=== PATIENT | female | born 1995 | race Caucasian/White ===

== ENCOUNTER 2023-03-11 20:53 | Outpatient (REF) | payer MEDICAID, SELFPAY ==
[2023-03-17 14:09] LABS: Age Gdln ACOG Testing Note (.); IGP, rfx Aptima HPV ASCU Note (.)
== END 2023-03-11 20:54 | disposition home or self-care (01) ==
LOC: LAB 20:53
PROVIDERS: Visit Provider Obstetrics & Gynecology
DX: Z01.419 Encounter for gynecological examination (general) (routine) without abnormal findings (principal)
CPT/HCPCS: G0145

== ENCOUNTER 2023-03-23 12:55 | Outpatient (OUT) | payer MEDICAID, SELFPAY ==
--- NOTE | 2023-03-23 13:00 | US_ITS ---
The [address] [address] Patient Name: JENNIE ARGUELLO MRN: [id number] date: 1995 Sex: F Assigned Patient Location: Current Patient Location: Accession/Order Number: [id number] Exam Date: 03/23/2023 14:00 Report Date: 03/23/2023 16:42 At the request of: HAYDEE BAZAN Procedure: US pelvis transvaginal EXAM: Pelvic ultrasound HISTORY: . Hormone Imbalance E34.9 . COMPARISON: None. TECHNIQUE: Transvaginal scanning was performed FINDINGS: Scanning of the pelvis demonstrates an anteverted uterus measuring 8.4 x 4.7 x 4.9 cm. Endometrial complex measures 14 mm. Right ovary measures 4.5 x 2.7 x 3.4 cm. Color-flow is noted. Resistive index is 0.32. There is a 2.6 x 2.5 cm smoothly marginated avascular complicated cyst in the right ovary. Left ovary measures 4 x 2.2 x 2.4 cm. Color-flow is noted. Resistive indexes 0.4. There is a 1.7 x 1.6 cm simple cyst in the left ovary. No fluid is noted in the cul-de-sac. US/US pelvis transvaginal IMPRESSION: 1. Uterus and endometrial complex. 2. 1.7 cm simple cyst in the left ovary. 3. 2.6 x 2.5 cm avascular complex cyst in the right ovary. Findings most likely represent hemorrhagic cyst. Less likely would be an inflammatory mass or neoplasm. Clinical correlation is suggested. Electronically authenticated by: MARKIE BARTON Date: 03/23/2023 16:42
[2023-03-23 14:38] LABS: Basophils Percent Auto 0.4 % (0.2-2.0); Eosinophils Absolute Auto 0.2 10^3/uL (0.0-0.7); Eosinophils Percent Auto 2.9 % (0.9-7.0); Hematocrit 38.8 % (36.0-48.0); Immature Granulocytes Abs Auto 0.01 10^3/uL (0.00-0.03); Immature Granulocytes Pct Auto 0.1 % (0.0-0.5); Lymphocytes Absolute Auto 2.1 10^3/uL (1.2-3.8); Lymphocytes Percent Auto 27.8 % (20.5-60.0); Mean Corpuscular HGB Conc 33.5 g/dL (29.9-35.2); Mean Corpuscular Hemoglobin 29.1 pg (26.7-34.0); Mean Corpuscular Volume 86.8 fL (81.0-99.0); Mean Platelet Volume 10.1 fL (9.5-13.5); Monocytes Absolute Auto 0.4 10^3/uL (0.3-0.8); Monocytes Percent Auto 5.5 % (1.7-12.0); Neutrophils Absolute Auto 4.8 10^3/uL (1.4-6.5); Neutrophils Percent Auto 63.3 % (43.0-75.0); Platelet Count 289 10^3/uL (150-450); Red Blood Count 4.47 10^6/uL (4.20-5.40); Red Cell Distribution Width 12.6 % (11.0-15.0); White Blood Count 7.6 10^3/uL (4.0-11.0)
[2023-03-23 14:53] LABS: Estimated Average Glucose 88 mg/dL; Glycohemoglobin A1C 4.7 % (4.5-6.2)
[2023-03-23 15:57] LABS: Free T4 0.78 ng/dL (0.76-1.46)
[2023-03-23 16:36] LABS: HCG Quantitative <1 mIU/mL
[2023-03-24 04:12] LABS: FSH 3.1 mIU/mL (.); Luteinizing Hormone(LH) 13.1 mIU/mL (.)
[2023-03-27 13:09] LABS: DHEA, Serum 207 ng/dL (31-701)
== END 2023-03-23 12:56 | disposition home or self-care (01) ==
LOC: US 12:55
PROVIDERS: Visit Provider Obstetrics & Gynecology
DX: E34.9 Endocrine disorder, unspecified (principal); N83.291 Other ovarian cyst, right side; N83.292 Other ovarian cyst, left side
CPT/HCPCS: 36415; 76830; 82626; 82627; 83001; 83002; 83036; 84439; 84443; 84702; 85025

== ENCOUNTER 2023-06-26 14:51 | Outpatient (OUT) | payer OTHER, SELFPAY ==
--- NOTE | 2023-06-26 14:55 | US_ITS ---
[address] [address] Patient Name: JENNIE ARGUELLO MRN: [id number] date: 1995 Sex: F Assigned Patient Location: US Current Patient Location: Accession/Order Number: [id number] Exam Date: 06/26/2023 14:56 Report Date: 06/29/2023 04:18 At the request of: HAYDEE BAZAN Procedure: US pelvis transvaginal EXAMINATION: US pelvis transvaginal HISTORY: PELVIC PAIN IN FEMALE R10.2 ; follow-up right ovarian complex cyst COMPARISON: Ultrasound pelvis transvaginal 03/23/2023 TECHNIQUE: Transabdominal and/or transvaginal sonographic examination was performed as indicated by examination type. FINDINGS: UTERUS: Normal size and appearance. Uterus size: 7.8 x 4.6 x 5.4 cm ENDOMETRIUM: Normal homogeneous appearance. Endometrial thickness: 9 mm RIGHT OVARY: Contains a 2.0 x 1.7 x 1.3 cm simple appearing cyst. Duplex Doppler demonstrates normal waveform and flow; resistive index 0.5. Ovary size: 4.5 x 2.1 x 2.5 cm LEFT OVARY: Normal size and appearance. Duplex Doppler demonstrates normal waveform and flow; resistive index 0.4. Ovary size: 3.2 x 1.8 x 1.4 cm CUL-DE-SAC: Unremarkable. No significant free fluid. BLADDER: Unremarkable. OTHER: None. US/US pelvis transvaginal IMPRESSION: 1. No acute or suspicious findings. 2. Resolution of previously seen complex right ovarian cyst. Electronically authenticated by: NAHOMY CABRERA Date: 06/29/2023 04:18
[2023-06-26 16:43] LABS: Thyroid Stimulating Hormone 1.948 uIU/mL (0.358-3.740)
== END 2023-06-26 14:52 | disposition home or self-care (01) ==
LOC: US 14:51
PROVIDERS: Visit Provider Obstetrics & Gynecology
DX: R10.2 Pelvic and perineal pain (principal); R79.89 Other specified abnormal findings of blood chemistry
CPT/HCPCS: 36415; 76830; 84443

== ENCOUNTER 2024-06-05 11:56 | Emergency (ER) | payer BC, SELFPAY ==
[2024-06-05 12:10] VITALS: BP 109/74; PULSE 111; TEMP 36.8; O2SAT 98; BMI 24.3
--- OUTSIDE RECORDS SUMMARY | 2024-06-05 12:14 | XMS_ITS | CCD ---
Author Organization 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 Name Role Phone Unavailable Primary Care Provider UnavailMANUEL Ruvalcaba Attending Unavailable EBOSELEMANUEL Primary Care Unavailable EBOSELMANUEL Mojica Attending Unavailable EBOSELMANUEL Mojica Primary Care Unavailable KARASIK ., DR BETANCUR Admitting Unavailabl e KARASIK ., DR BETANCUR Attending Unavailabl e KARASIK ., DR BETANCUR Consulting Unavailabl e REQUEST, DR NONE LISTED Primary Care Unavaila ble REQUEST, DR NONE LISTED Primary Care Unavaila ble HORTENSIA ., DR HUBBARD Attending Unavailable HORTENSIA ., DR HUBBARD Consulting Unavailable HORTENSIA ., DR HUBBARD Admitting Unavailable SONG II, MAGO Consulting Unavailable KOMA, UMESH Consulting Unavailable REQUEST, NONE LISTED Primary Care Unavaila ble HORTENSIA ., DR HUBBARD Attending Unavailable HORTENSIA ., DR HUBBARD Consulting Unavailable HORTENSIA ., DR HUBBARD Admitting Unavailable REQUEST, DR NONE LISTED Primary Care Unavaila ble HORTENSIA ., DR HUBBARD Attending Unavailable HORTENSIA ., DR HUBBARD Consulting Unavailable HORTENSIA ., DR HUBBARD Admitting Unavailable KARASIK ., DR BETANCUR Admitting Unavailabl e KARASIK ., DR BETANCUR Attending Unavailabl e KARASIK ., DR BETANCUR Consulting Unavailabl e REQUEST, DR NONE LISTED Primary Care Unavaila ble ZiebNiko lackey Consulting Unavailable REQUEST, NONE LISTED Primary Care Unavaila ble HORTENSIA ., DR HUBBARD Admitting Unavailable HORTENSIA ., DR HUBBARD Attending Unavailable REQUEST, NONE LISTED Primary Care Unavaila ble HORTENSIA ., DR HUBBARD Attending Unavailable HORTENSIA ., DR HUBBARD Admitting Unavailable HORTENSIA ., DR HUBBARD Admitting Unavailable REQUEST, DR NONE LISTED Primary Care Unavaila ble HORTENSIA ., DR HUBBARD Attending Unavailable REQUEST, DR NONE LISTED Primary Care Unavaila ble HORTENSIA ., DR HUBBARD Attending Unavailable HORTENSIA ., DR HUBBARD Consulting Unavailable HORTENSIA ., DR HUBBARD Admitting Unavailable REQUEST, DR NONE LISTED Primary Care Unavaila ble HORTENSIA ., DR HUBBARD Attending Unavailable HORTENSIA ., DR HUBBARD Consulting Unavailable HORTENSIA ., DR HUBBARD Admitting Unavailable HORTENSIA ., DR HUBBARD Consulting Unavailable REQUEST, DR NONE LISTED Primary Care Unavaila ble HORTENSIA ., DR HUBBARD Attending Unavailable HORTENSIA ., DR HUBBARD Admitting Unavailable MISC, DR HANNON Primary Care Unavailable HORTENSIA ., DR HUBBARD Consulting Unavailable HORTENSIA ., DR HUBBARD Admitting Unavailable HORTENSIA ., DR HUBBARD Attending Unavailable Zieber, Niko Consulting Unavailable HORTENSIA ., DR HUBBARD Attending Unavailable HORTENSIA ., DR HUBBARD Consulting Unavailable HORTENSIA ., DR HUBBARD Admitting Unavailable REQUEST, DR NONE LISTED Primary Care Unavaila ble KONSTMANUELA HAGEN Consulting Unavailable KARASIK ., DR BETANCUR Consulting Unavailabl e HORTENSIA ., DR HUBBARD Admitting Unavailable REQUEST, DR NONE LISTED Primary Care Unavaila ble HORTENSIA ., DR HUBBARD Attending Unavailable WEST, DR MARKIE Valle Consulting Unavailable HORTENSIA ., DR HUBBARD Consulting Unavailable HORTENSIA ., DR HUBBARD Consulting Unavailable HORTENSIA ., DR HUBBARD Admitting Unavailable HORTENSIA ., DR HUBBARD Attending Unavailable REQUEST, DR NONE LISTED Primary Care Unavaila ble Zieber, Niko Consulting Unavailable HORTENSIA ., DR HUBBARD Attending Unavailable HORTENSIA ., DR HUBBARD Consulting Unavailable HORTENSIA ., DR HUBBARD Admitting Unavailable REQUEST, DR NONE LISTED Primary Care Unavaila ble KARASIK ., DR BETANCUR Admitting Unavailabl e KARASIK ., DR BETANCUR Attending Unavailabl e KARASIK ., DR BETANCRU Consulting Unavailabl e MISC, DR HANNON Primary Care Unavailable HORTENSIA ., DR HUBBARD Consulting Unavailable ZiebNiko lackey Consulting Unavailable WEST, DR MARKIE Valle Consulting Unavailable REQUEST, DR NONE LISTED Primary Care Unavaila ble HORTENSIA ., DR HUBBARD Attending Unavailable HORTENSIA ., DR HUBBARD Admitting Unavailable HORTENSIA ., DR HUBBARD Procedure Practitioner Unavail able HORTENSIA ., DR HUBBARD Consulting Unavailable LORRAINE HAMMER Consulting Unavailable KARASIK ., DR BETANCUR Consulting Unavailabl e MISC, DR HANNON Primary Care Unavailable HORTENSIA ., DR HUBBARD Admitting Unavailable HORTENSIA ., DR HUBBARD Attending Unavailable HORTENSIA ., DR HUBBARD Consulting Unavailable Niko Burdick Consulting Unavailable REQUEST, DR NONE LISTED Primary Care Unavaila ble HORTENSIA ., DR HUBBARD Attending Unavailable HORTENSIA ., DR HUBBARD Consulting Unavailable HORTENSIA ., DR HUBBARD Admitting Unavailable REQUEST, DR NONE LISTED Primary Care Unavaila ble HORTENSIA ., DR HUBBARD Attending Unavailable HORTENSIA ., DR HUBBARD Admitting Unavailable WEST, DR MARKIE Valle Consulting Unavailable HORTENSIA ., DR HUBBARD Consulting Unavailable KARASIK ., DR BETANCUR Consulting Unavailabl e REQUEST, DR NONE LISTED Primary Care Unavaila ble HORTENSIA ., DR HUBBARD Attending Unavailable HORTENSIA ., DR HUBBARD Admitting Unavailable HORTENSIA ., DR HUBBARD Attending Unavailable HORTENSIA ., DR HUBBARD Consulting Unavailable HORTENSIA ., DR HUBBARD Admitting Unavailable REQUEST, DR NONE LISTED Primary Care Unavaila ble REQUEST, NONE LISTED Primary Care Unavaila ble HORTENSIA ., DR HUBBARD Attending Unavailable HORTENSIA ., DR HUBBARD Admitting Unavailable WEST, DR MARKIE Valle Consulting Unavailable HORTENSIA ., DR HUBBARD Consulting Unavailable Harris Ronald SOTO Primary Care Provider RONALD HARRIS Attending Unavailable HARRIS, RONALD Ghotra Referring Unavailable HARRIS, RONALD N Primary Care Unavailable DENNIS VÁZQUEZ Attending Unavailable HARRIS, RONALD Ghotra Referring Unavailable HARRIS, RONALD N Primary Care Unavailable HARRIS, RONALD Ghotra Attending Unavailable HARRIS, RONALD N Referring Unavailable HARRIS, RONALD N Primary Care Unavailable HARRIS, RONALD N Attending Unavailable HARRIS, RONALD N Referring Unavailable HARRIS, RONALD N Primary Care Unavailable HARRIS, RONALD N Attending Unavailable HARRIS, RONALD N Primary Care Unavailable Allergies Allergy Classification Reported Allergen(s) Allergy Type Date of Onset Reaction(s) Facility Unclassified (1 source) No Known Medication Allergies; Translations: [No Known Medication Allergies] Propensity to adverse reactions to drug (disorder) [facility] Repository (2 sources) Amoxicillin; Translations: [AMOXICILLIN] Drug Allergy 4 [facility] Repository (1 source) NIFEdipine Drug Allergy 2 [facility] Repository (3 sources) Amoxicillin Drug Allergy 4 Hives, hypertension, Dizziness [facility] (1 source) Wheat gluten extract [facility] Medications Current Medications Medication Drug Class(es) Dates Sig (Normalized) Sig (Original) cholecalciferol 0.125 mg oral capsule (2 sources) Vitamin D Start: 12-30-2023 End: 09-28-2024 take 1 capsule by mouth in the morning cholecalciferol, vitamin D3, (D3-5000) 5,000 units capsule Take 1 capsule (5,000 Units total) by mouth in the morning for 180 days. 90 capsule 1 04/01/2024 09/28/2024 Active ergocalciferol 1.25 mg oral capsule (1 source) Provitamin D2 Compound Start: 07-27-2023 End: 10-13-2023 take 1 capsule by mouth every week ergocalciferol (VITAMIN D2) 1,250 mcg (50,000 unit) capsule Indications: Vitamin D deficiency disease Take 1 capsule (50,000 Units total) by mouth once a week for 12 doses. 12 capsule 0 07/27/2023 10/13/2023 Active FLUoxetine 10 mg oral capsule (3 sources) Serotonin Reuptake Inhibitor Start: 12-30-2023 End: 09-28-2024 take 1 capsule by mouth in the morning FLUoxetine (PROzac) 10 mg capsule Take 1 capsule (10 mg total) by mouth in the morning for 180 days. Take in morning. 90 capsule 1 04/01/2024 09/28/2024 Active Start: 07-27-2023 End: 08-26-2023 take 1 capsule by mouth in the morning FLUoxetine (PROzac) 10 mg capsule Take 1 capsule (10 mg total) by mouth in the morning for 30 days. 30 capsule 0 07/27/2023 08/26/2023 Active hydrocortisone acetate 10 mg/ml / pramoxine hydrochloride 10 mg/ml rectal foam (1 source) Corticosteroid Start: 07-05-2019 take 1 dose rectal route four times daily as needed hydrocortisone-pramoxine (PROCTOFOAM HC) 1-1 % rectal foam Place rectally 4 times daily. As needed 10 g 0 07/05/2019 Active levothyroxine sodium 0.05 mg oral tablet (4 sources) l-Thyroxine Start: 12-30-2023 End: 09-28-2024 take 1 tablet by mouth in the morning levothyroxine (SYNTHROID, LEVOTHROID) 50 MCG tablet Take 1 tablet (50 mcg total) by mouth in the morning for 180 days. 90 tablet 1 04/01/2024 09/28/2024 Active take 1 tablet by mouth in the mo rning levothyroxine (SYNTHROID, LEVOTHROID) 50 MCG tablet Take 1 tablet (50 mcg total) by mouth in the morning. 0 Active naproxen 500 mg oral tablet (1 source) Nonsteroidal Anti-inflammatory Drug Start: 07-05-2019 take 1 tablet by mouth twice daily naproxen (NAPROSYN) 500 MG tablet Take 1 tablet by mouth 2 times daily 14 tablet 0 07/05/2019 Active Completed/Discontinued Medications Medication Drug Class(es) Dates Sig (Normalized) Sig (Original) iopamidol (ISOVUE-370) 76 % injection 75 mL (1 source) Start: 07-05-2019 End: 07-05-2019 iopamidol (ISOVUE-370) 76 % injection 75 mL ondansetron 4 mg disintegrating oral tablet (1 source) Serotonin-3 Receptor Antagonist Start: 07-08-2019 End: 07-06-2023 take 1 tablet by mouth every eight hours as needed for nausea ondansetron ODT (ZOFRAN-ODT) 4 mg disintegrating tablet Dissolve 1 tablet (4 mg total) on tongue every 8 (eight) hours as needed for nausea for up to 10 doses. 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] Onset: 07-27-2023 07-06-2023 Chronic Nutritional deficiencies (2 sources) Vitamin D deficiency; Translations: [Vitamin D deficiency, unspecified] Onset: 07-27-2023 07-27-2023 Chronic Ovarian cyst (1 source) Ruptured cyst of ovary Episodic Thyroid disorders (4 sources) Hypothyroidism; Translations: [Hypothyroidism, unspecified] Onset: 07-06-2023 07-06-2023 Chronic Unclassified (1 source) CONTACT W/AND (SUSP) EXPOS COVID-19; Translations: [CONTACT W/AND (SUSP) EXPOS COVID-19] Onset: 06-02-2022 Unclassified (3 sources) OTH SPCF DIS/COND COMPL ; Translations: [OTH SPCF DIS/COND COMPL ] Onset: 05-22-2022 Unclassified (1 source) Positive thyroid antibody Onset: 09-01-2023 Unclassified (1 source) Thyroid Problem Onset: 09-01-2023 Unclassified (1 source) New Patient Onset: 07-06-2023 Past or Other Problems Problem Classification Problem Date Documented Date Episodic/Chronic Abdominal pain (2 sources) Pelvic and perineal pain; Translations: [Lower abdominal pain, unspecified] Onset: 03-21-2022 Episodic Bacterial infection; unspecified site (1 source) Unspecified Escherichia coli [E. coli] as the cause of diseases classified elsewhere; Translations: [UNS E COLI CAUSE DX CLASS ELSEWHERE] Onset: 05-08-2022 Episodic Biliary tract disease (4 sources) Disease of gallbladder, unspecified; Translations: [DISEASE OF GALLBLADDER UNSPECIFIED] Onset: 10-25-2021 Episodic Early or threatened labor (12 sources) False labor before 37 completed weeks of gestation, third trimester; Translations: [ labor without delivery, unspecified trimester] Onset: 04-23-2022 Episodic Genitourinary symptoms and ill-defined conditions (2 sources) Personal history of urinary (tract) infections; Translations: [Unspecified symptoms and signs involving the genitourinary system] Onset: 02-28-2022 Episodic Immunizations and screening for infectious disease (5 sources) Encounter for screening for human papillomavirus (HPV); Translations: [Encounter for screening for infections with a predominantly sexual mode of transmission] Onset: 12-10-2021 07-27-2023 Episodic Malaise and fatigue (4 sources) Tired; Translations: [Other fatigue] Onset: 07-27-2023 07-06-2023 Episodic Other complications of (4 sources) Maternal care for excessive growth, third trimester, not applicable or unspecified; Translations: [MAT CARE EXCSS FTL GRTH 3RD TRI UNS] Onset: 05-14-2022 Episodic Other complications of (4 sources) Other specified related conditions, third trimester; Translations: [OTH SPEC PREG RELATED COND 3RD TRI] Onset: 05-07-2022 Episodic Other complications of (1 source) Unspecified infection of urinary tract in , third trimester; Translations: [UNS INF URINARY TRACT PREG 3RD TRI] Onset: 05-08-2022 Episodic Other complications of (4 sources) Other specified related conditions, second trimester; Translations: [OTH SPEC PREG RELATED COND 2ND TRI] Onset: 03-09-2022 Episodic Other complications of (4 sources) Unspecified infection of urinary tract in , unspecified trimester; Translations: [UNS INF URINARY TRACT PREG UNS TRI] Onset: 01-29-2022 Episodic Other complications of (1 source) Unspecified infection of urinary tract in , second trimester; Translations: [UNS INF URINARY TRACT PREG 2ND TRI] Onset: 01-30-2022 Episodic Other female genital disorders (1 source) Other specified noninflammatory disorders of vagina; Translations: [OTH SPEC NONINFLAMMATORY D/O VAGINA] Onset: 02-28-2022 Episodic Other and delivery including normal (16 sources) Encounter for routine follow-up; Translations: [Encounter for full-term uncomplicated delivery] Onset: 01-29-2022 Episodic Other screening for suspected conditions (not mental disorders or infectious disease) (11 sources) Encounter for screening for diabetes mellitus; Translations: [Encounter for screening for malignant neoplasm of cervix] Onset: 12-10-2021 Episodic Residual codes; unclassified (1 source) 37 weeks gestation of ; Translations: [37 WEEKS GESTATION OF ] Onset: 06-02-2022 Episodic Residual codes; unclassified (1 source) 36 weeks gestation of ; Translations: [36 WEEKS GESTATION OF ] Onset: 05-22-2022 Episodic Residual codes; unclassified (1 source) 35 weeks gestation of ; Translations: [35 WEEKS GESTATION OF ] Onset: 05-11-2022 Episodic Residual codes; unclassified (1 source) 33 weeks gestation of ; Translations: [33 WEEKS GESTATION OF ] Onset: 05-08-2022 Episodic Residual codes; unclassified (1 source) 32 weeks gestation of ; Translations: [32 WEEKS GESTATION OF ] Onset: 04-21-2022 Episodic Residual codes; unclassified (1 source) 26 weeks gestation of ; Translations: [26 WEEKS GESTATION OF ] Onset: 03-21-2022 Episodic Unclassified (1 source) OT SPCF DIS/COND COMPL ; Translations: [OT SPCF DIS/COND COMPL ] Onset: 05-19-2022 Urinary tract infections (1 source) Urinary tract infection, site not specified; Translations: [UTI SITE NOT SPECIFIED] Onset: 05-08-2022 Episodic Results Test Name Value Interpretation Reference Range Facility CBC AUTO DIFFon 07-11-2022 BASO # 0.0 103/ul Normal 0.0-0.1 [facility] Comment on above: Performed By: #### H BSANS #### [facility] [address] [place] [address] Dr. Nayeli Moore Basophils/100 WBC (Bld) 0.4 % Normal 0.2-2.0 [facility] Comment on above: Performed By: #### H BSANS #### [facility] [address] [place] [address] Dr. Nayeli Moore EO # 0.3 103/ul Normal 0.0-0.7 [facility] Comment on above: Performed By: #### H BSANS #### [facility] [address] [place] [address] Dr. Nayeli Moore Eosinophils/100 WBC (Bld) 3.6 % Normal 0.9-7.0 [facility] Comment on above: Performed By: #### H BSANS #### [facility] [address] [place] [address] Dr. Nayeli Moore Erythrocyte distribution width (RBC) [Ratio] 13.5 % Normal 11.0-15.0 [facility] Comment on above: Performed By: #### H BSANS #### [facility] [address] [place] [address] Dr. Nayeli Moore Hematocrit (Bld) [Volume fraction] 38.1 % Normal 36.0-48.0 [facility] Comment on above: Performed By: #### H BSANS #### [facility] [address] [place] [address] Dr. Nayeli Moore Hemoglobin (Bld) [Mass/Vol] 12.6 g/dL Normal 12.0-16.0 [facility] Comment on above: Performed By: #### H BSANS #### [facility] [address] [place] [address] Dr. Nayeli Moore IG # 0.02 10e3/ul Normal 0.00-0.03 [facility] Comment on above: Performed By: #### H BSANS #### [facility] [address] [place] [address] Dr. Nayeli Moore IG % 0.3 % Normal 0.0-0.5 [facility] Comment on above: Performed By: #### H BSANS #### [facility] [address] [place] [address] Dr. Nayeli Moore LYMPH # 2.8 103/ul Normal 1.2-3.8 [facility] Comment on above: Performed By: #### H BSANS #### [facility] [address] [place] [address] Dr. Nayeli Moore Lymphocytes/100 WBC (Bld) 40.3 % Normal 20.5-60.0 [facility] Comment on above: Performed By: #### H BSANS #### [facility] [address] [place] [address] Dr. Nayeli Moore MANUAL DIFF REQ NO Normal [facility] Comment on above: Performed By: #### H BSANS #### [facility] [address] [place] [address] Dr. Nayeli Moore MCH (RBC) [Entitic mass] 28.0 pg Normal 26.7-34.0 [facility] Comment on above: Performed By: #### H BSANS #### [facility] [address] [place] [address] Dr. Nayeli Moore MCHC (RBC) [Mass/Vol] 33.1 g/dL Normal 29.9-35.2 [facility] Comment on above: Performed By: #### H BSANS #### [facility] [address] [place] [address] Dr. Nayeli Moore MCV (RBC) [Entitic vol] 84.7 fL Normal 81.0-99.0 [facility] Comment on above: Performed By: #### H BSANS #### [facility] [address] [place] [address] Dr. Nayeli Moore MONO # 0.5 103/ul Normal 0.3-0.8 [facility] Comment on above: Performed By: #### H BSANS #### [facility] [address] [place] [address] Dr. Nayeli Moore Monocytes/100 WBC (Bld) 6.6 % Normal 1.7-12.0 [facility] Comment on above: Performed By: #### H BSANS #### [facility] [address] [place] [address] Dr. Nayeli Moore NEUT # 3.4 103/ul Normal 1.4-6.5 [facility] Comment on above: Performed By: #### H BSANS #### [facility] [address] [place] [address] Dr. Nayeli Moore Neutrophils/100 WBC (Bld) 48.8 % Normal 43.0-75.0 [facility] Comment on above: Performed By: #### H BSANS #### [facility] [address] [place] [address] Dr. Nayeli Moore Platelet mean volume (Bld) [Entitic vol] 9.2 fL Critically low 9.5-13.5 [facility] Comment on above: Performed By: #### H BSANS #### [facility] [address] [place] [address] Dr. Nayeli Moore PLT 263 103/ul Normal 150-450 [facility] Comment on above: Performed By: #### H BSANS #### [facility] [address] [place] [address] Dr. Nayeli Moore RBC 4.50 106/ul Normal 4.20-5.40 [facility] Comment on above: Performed By: #### H BSANS #### [facility] [address] [place] [address] Dr. Nayeli Moore WBC 6.9 103/ul Normal 4.0-11.0 [facility] Comment on above: Performed By: #### H BSANS #### [facility] [address] [place] [address] Dr. Nayeli Moore PREG QUANT HCGon 07-11-2022 HCG QUANT <1 Normal [facility] Comment on above: Performed By: #### U ALHAJI UMICRO #### [facility] [address] [place] [address] Dr. Nayeli Moore HCG RANGE SEE BELOW Normal [facility] Comment on above: Result Comment: 5-50 0.2-1 WEEK 50-500 1-2 WEEKS 100-5,000 2-3 WEEKS 500-10,000 3-4 WEEKS 1,000-50,000 4-5 WEEKS 10,000-100,000 5-6 WEEKS 15,000-200,000 6-8 WEEKS 10,000-100,000 2-3 MONTHS Performed By: #### U ACSJUANCARLOS ICRO #### [facility] [address] [place] [address] Dr. Nayeli Moore CBC AUTO DIFFon 05-22-2022 BASO # 0.0 103/ul Normal 0.0-0.1 [facility] Comment on above: Performed By: #### H BSANS #### [facility] [address] [place] [address] Dr. Nayeli Moore Basophils/100 WBC (Bld) 0.2 % Normal 0.2-2.0 [facility] Comment on above: Performed By: #### H BSANS #### [facility] [address] [place] [address] Dr. Nayeli Moore EO # 0.1 103/ul Normal 0.0-0.7 [facility] Comment on above: Performed By: #### H BSANS #### [facility] [address] [place] [address] Dr. Nayeli Moore Eosinophils/100 WBC (Bld) 1.1 % Normal 0.9-7.0 [facility] Comment on above: Performed By: #### H BSANS #### [facility] [address] [place] [address] Dr. Nayeli Moore Erythrocyte distribution width (RBC) [Ratio] 12.9 % Normal 11.0-15.0 [facility] Comment on above: Performed By: #### H BSANS #### [facility] [address] [place] [address] Dr. Nayeli Moore Hematocrit (Bld) [Volume fraction] 29.4 % Critically low 36.0-48.0 [facility] Comment on above: Performed By: #### H BSANS #### [facility] [address] [place] [address] Dr. Nayeli Moore Hemoglobin (Bld) [Mass/Vol] 9.9 g/dL Critically low 12.0-16.0 [facility] Comment on above: Performed By: #### H BSANS #### [facility] [address] [place] [address] Dr. Nayeli Moore IG # 0.04 10e3/ul Critically high 0.00-0.03 [facility] Comment on above: Performed By: #### H BSANS #### [facility] [address] [place] [address] Dr. Nayeli Moore IG % 0.3 % Normal 0.0-0.5 [facility] Comment on above: Performed By: #### H BSANS #### [facility] [address] [place] [address] Dr. Nayeli Moore LYMPH # 1.9 103/ul Normal 1.2-3.8 [facility] Comment on above: Performed By: #### H BSANS #### [facility] [address] [place] [address] Dr. Nayeli Moore Lymphocytes/100 WBC (Bld) 14.7 % Critically low 20.5-60.0 [facility] Comment on above: Performed By: #### H BSANS #### [facility] [address] [place] [address] Dr. Nayeli Moore MANUAL DIFF REQ NO Normal [facility] Comment on above: Performed By: #### H BSANS #### [facility] [address] [place] [address] Dr. Nayeli Moore MCH (RBC) [Entitic mass] 28.5 pg Normal 26.7-34.0 [facility] Comment on above: Performed By: #### H BSANS #### [facility] [address] [place] [address] Dr. Nayeli Moore MCHC (RBC) [Mass/Vol] 33.7 g/dL Normal 29.9-35.2 [facility] Comment on above: Performed By: #### H BSANS #### [facility] [address] [place] [address] Dr. Nayeli Moore MCV (RBC) [Entitic vol] 84.7 fL Normal 81.0-99.0 [facility] Comment on above: Performed By: #### H BSANS #### [facility] [address] [place] [address] Dr. Nayeli Moore MONO # 1.3 103/ul Critically high 0.3-0.8 [facility] Comment on above: Performed By: #### H BSANS #### [facility] [address] [place] [address] Dr. Nayeli Moore Monocytes/100 WBC (Bld) 9.7 % Normal 1.7-12.0 [facility] Comment on above: Performed By: #### H BSANS #### [facility] [address] [place] [address] Dr. Nayeli Moore NEUT # 9.6 103/ul Critically high 1.4-6.5 [facility] Comment on above: Performed By: #### H BSANS #### [facility] [address] [place] [address] Dr. Nayeli Moore Neutrophils/100 WBC (Bld) 74.0 % Normal 43.0-75.0 [facility] Comment on above: Performed By: #### H BSANS #### [facility] [address] [place] [address] Dr. Nayeli Moore Platelet mean volume (Bld) [Entitic vol] 10.7 fL Normal 9.5-13.5 [facility] Comment on above: Performed By: #### H BSANS #### [facility] [address] [place] [address] Dr. Nayeli Moore PLT 167 103/ul Normal 150-450 [facility] Comment on above: Performed By: #### H BSANS #### [facility] [address] [place] [address] Dr. Nayeli Moore RBC 3.47 106/ul Critically low 4.20-5.40 [facility] Comment on above: Performed By: #### H BSANS #### [facility] [address] [place] [address] Dr. Nayeli Moore WBC 12.9 103/ul Critically high 4.0-11.0 [facility] Comment on above: Performed By: #### H BSANS #### [facility] [address] [place] [address] Dr. Nayeli Moore AMNISUREon 05-21-2022 AMNISURE Negative Normal NEGATIVE [facility] Comment on above: Performed By: #### U RCX #### [facility] [address] [place] [address] Dr. Nayeli Moore CBC AUTO DIFFon 05-21-2022 BASO # 0.0 103/ul Normal 0.0-0.1 [facility] Comment on above: Performed By: #### H BSANS #### [facility] [address] [place] [address] Dr. Nayeli Moore Basophils/100 WBC (Bld) 0.2 % Normal 0.2-2.0 [facility] Comment on above: Performed By: #### H BSANS #### [facility] [address] [place] [address] Dr. Nayeli Moore EO # 0.2 103/ul Normal 0.0-0.7 [facility] Comment on above: Performed By: #### H BSANS #### [facility] [address] [place] [address] Dr. Nayeli Moore Eosinophils/100 WBC (Bld) 1.2 % Normal 0.9-7.0 [facility] Comment on above: Performed By: #### H BSANS #### [facility] [address] [place] [address] Dr. Nayeli Moore Erythrocyte distribution width (RBC) [Ratio] 12.7 % Normal 11.0-15.0 [facility] Comment on above: Performed By: #### H BSANS #### [facility] [address] [place] [address] Dr. Nayeli Moore Hematocrit (Bld) [Volume fraction] 34.1 % Critically low 36.0-48.0 [facility] Comment on above: Performed By: #### H BSANS #### [facility] [address] [place] [address] Dr. Nayeli Moore Hemoglobin (Bld) [Mass/Vol] 11.5 g/dL Critically low 12.0-16.0 [facility] Comment on above: Performed By: #### H BSANS #### [facility] [address] [place] [address] Dr. Nayeli Moore IG # 0.09 10e3/ul Critically high 0.00-0.03 [facility] Comment on above: Performed By: #### H BSANS #### [facility] [address] [place] [address] Dr. Nayeli Moore IG % 0.7 % Critically high 0.0-0.5 [facility] Comment on above: Performed By: #### H BSANS #### [facility] [address] [place] [address] Dr. Nayeli Moore LYMPH # 2.3 103/ul Normal 1.2-3.8 [facility] Comment on above: Performed By: #### H BSANS #### [facility] [address] [place] [address] Dr. Nayeli Moore Lymphocytes/100 WBC (Bld) 18.4 % Critically low 20.5-60.0 [facility] Comment on above: Performed By: #### H BSANS #### [facility] [address] [place] [address] Dr. Nayeli Moore MANUAL DIFF REQ NO Normal [facility] Comment on above: Performed By: #### H BSANS #### [facility] [address] [place] [address] Dr. Nayeli Moore MCH (RBC) [Entitic mass] 28.3 pg Normal 26.7-34.0 [facility] Comment on above: Performed By: #### H BSANS #### [facility] [address] [place] [address] Dr. Nayeli Moore MCHC (RBC) [Mass/Vol] 33.7 g/dL Normal 29.9-35.2 [facility] Comment on above: Performed By: #### H BSANS #### [facility] [address] [place] [address] Dr. Nayeli Moore MCV (RBC) [Entitic vol] 84.0 fL Normal 81.0-99.0 [facility] Comment on above: Performed By: #### H BSANS #### [facility] [address] [place] [address] Dr. Nayeli Moore MONO # 0.9 103/ul Critically high 0.3-0.8 [facility] Comment on above: Performed By: #### H BSANS #### [facility] [address] [place] [address] Dr. Nayeli Moore Monocytes/100 WBC (Bld) 7.4 % Normal 1.7-12.0 [facility] Comment on above: Performed By: #### H BSANS #### [facility] [address] [place] [address] Dr. Nayeli Moore NEUT # 9.0 103/ul Critically high 1.4-6.5 [facility] Comment on above: Performed By: #### H BSANS #### [facility] [address] [place] [address] Dr. Nayeli Moore Neutrophils/100 WBC (Bld) 72.1 % Normal 43.0-75.0 [facility] Comment on above: Performed By: #### H BSANS #### [facility] [address] [address] [address] Nayeli Moore Platelet mean volume (Bld) [Entitic vol] 10.9 fL Normal 9.5-13.5 [facility] Comment on above: Performed By: #### H BSANS #### [facility] [address] [place] [address] Dr. Nayeli Moore PLT 189 103/ul Normal 150-450 [facility] Comment on above: Performed By: #### H BSANS #### [facility] [address] [address] [address] Nayeli Moore RBC 4.06 106/ul Critically low 4.20-5.40 [facility] Comment on above: Performed By: #### H BSANS #### [facility] [address] [place] [address] Dr. Nayeli Moore WBC 12.4 103/ul Critically high 4.0-11.0 [facility] Comment on above: Performed By: #### H BSANS #### [facility] [address] [place] [address] Dr. Nayeli Moore Covid-19 PCR ([facility])on 04-25 SARS-CoV-2 (COVID-19) RNA MING+probe Ql (Unsp spec) Not detected Normal NOT DETECTED [facility] Comment on above: Result Comment: When diagnostic testing is negative, the possibility of a false negative should be considered in the context of a patient's recent exposures and the presence of clinical signs and symptoms consistent with SARS-CoV-2. This test is not yet approved or cleared by the [place] FDA. When there are no FDA-approved or cleared tests available, and other criteria are met, FDA can make tests available under an emergency access mechanism called an Emergency Use Authorization (EUA). The EUA for this test is supported by the [employer] Operator of Health and Human Service's declaration that circumstances exist to justify the emergency use of in vitro diagnostics for the detection and/or diagnosis of the virus that causes COVID-19. This EUA will remain in effect for the duration of the COVID-19 declaration justifying emergency of IVDs, unless it is terminated or revoked by the FDA (after which the test may no longer be used). Performed By: #### V AGINT #### [facility] [address] [place] [address] Dr. Nayeli Moore DRUG SCREEN RAPID (URINE)on 05-21-2022 AMP Negative Normal NEGATIVE [facility] Comment on above: Performed By: #### V AGINT #### [facility] [address] [place] [address] Dr. Nayeli Moore BAR Negative Normal NEGATIVE [facility] Comment on above: Performed By: #### V AGINT #### [facility] [address] [place] [address] Dr. Nayeli Moore BUP Negative Normal NEGATIVE [facility] Comment on above: Performed By: #### V AGINT #### [facility] [address] [place] [address] Dr. Nayeli Moore BZO Negative Normal NEGATIVE [facility] Comment on above: Performed By: #### V AGINT #### [facility] [address] [place] [address] Dr. Nayeli Moore GERONIMO Negative Normal NEGATIVE [facility] Comment on above: Performed By: #### V AGINT #### [facility] [address] [place] [address] Dr. Nayeli Moore CUT-OFFS SEE BELOW Normal [facility] Comment on above: Result Comment: AMP (Amphetamine): 500ng/mL, BAR (Barbituates): 200 ng/mL, BZO (Benzodiazepines): 150 ng/mL, BUP (Buprenorphine): 10 ng/mL, GERONIMO (Cocaine): 150 ng/mL, mAMP (Methamphetamine): 500 ng/mL, MTD (Methadone): 200 ng/mL, OPI (Opiates): 100 ng/mL, OXY (Oxycodone): 100 ng/mL, PCP (Phencyclidine): 25 ng/mL, PPX (Propoxyphene): 300 ng/mL, THC (Cannabinoids): 50 ng/mL, TCA (Trycyclic Antidepressants): 300 ng/mL Performed By: #### V AGINT #### [facility] [address] [place] [address] Dr. Nayeli Moore DRUG CUT HEADER DRUG CLASS TEST SYSTEM CUT-OFF CONCENTRATIONS ARE FOLLOWS: Normal [facility] Comment on above: Performed By: #### V AGINT #### [facility] [address] [place] [address] Dr. Nayeli Moore mAMP Negative Normal NEGATIVE [facility] Comment on above: Performed By: #### V AGINT #### [facility] [address] [place] [address] Dr. Nayeli Moore MTD Negative Normal NEGATIVE [facility] Comment on above: Performed By: #### V AGINT #### [facility] [address] [place] [address] Dr. Nayeli Moore OPI Negative Normal NEGATIVE [facility] Comment on above: Performed By: #### V AGINT #### [facility] [address] [place] [address] Dr. Nayeli Moore OXY Negative Normal NEGATIVE [facility] Comment on above: Performed By: #### V AGINT #### [facility] [address] [place] [address] Dr. Nayeli Moore PCP Negative Normal NEGATIVE [facility] Comment on above: Performed By: #### V AGINT #### [facility] [address] [place] [address] Dr. Nayeli Moore PPX Negative Normal NEGATIVE [facility] Comment on above: Performed By: #### V AGINT #### [facility] [address] [place] [address] Dr. Nayeli Moore TCA Negative Normal NEGATIVE [facility] Comment on above: Performed By: #### V AGINT #### [facility] [address] [place] [address] Dr. Nayeli Moore THC Negative Normal NEGATIVE [facility] Comment on above: Performed By: #### V AGINT #### [facility] [address] [place] [address] Dr. Nayeli Moore TYPE AND SCREENon 05-21-2022 TYPE AND SCREEN Negative Normal [facility] Comment on above: Performed By: #### U ACSIND, UMICRO #### [facility] [address] [place] [address] Dr. Nayeli Moore UA (CLEAN/CATCH) YARD PERSON/MICRO I F IND.on 05-21-2022 Bilirubin Ql (U) Negative Normal NEGATIVE [facility] Comment on above: Performed By: #### V AGINT #### [facility] [address] [place] [address] Dr. Nayeli Moore Clarity (U) CLEAR Normal CLEAR [facility] Comment on above: Performed By: #### V AGINT #### [facility] [address] [place] [address] Dr. Nayeli Moore Color (U) YELLOW Normal YELLOW [facility] Comment on above: Performed By: #### V AGINT #### [facility] [address] [place] [address] Dr. Nayeli Moore Glucose Ql (U) Negative Normal NEGATIVE [facility] Comment on above: Performed By: #### V AGINT #### [facility] [address] [place] [address] Dr. Nayeli Moore Hemoglobin Ql (U) Negative Normal NEGATIVE [facility] Comment on above: Performed By: #### V AGINT #### [facility] [address] [place] [address] Dr. Nayeli Moore Ketones Ql (U) Negative Normal NEGATIVE [facility] Comment on above: Performed By: #### V AGINT #### [facility] [address] [place] [address] Dr. Nayeli Moore LEUKOCYTES Negative Normal NEGATIVE [facility] Comment on above: Performed By: #### V AGINT #### [facility] [address] [place] [address] Dr. Nayeli Moore Nitrite Ql (U) Negative Normal NEGATIVE [facility] Comment on above: Performed By: #### V AGINT #### [facility] [address] [place] [address] Dr. Nayeli Moore pH (U) 6.5 [pH] Normal 5-9 [facility] Comment on above: Performed By: #### V AGINT #### [facility] [address] [place] [address] Dr. Nayeli Moore SPEC GRAVITY 1.010 Normal 1.005-<=1.025 [facility] Comment on above: Performed By: #### V AGINT #### [facility] [address] [place] [address] Dr. Nayeli Moore UA PROTEIN Negative Normal NEGATIVE/ TRACE [facility] Comment on above: Performed By: #### V AGINT #### [facility] [address] [place] [address] Dr. Nayeli Moore UR MICRO IND NOT INDICATED Normal [facility] Comment on above: Performed By: #### V AGINT #### [facility] [address] [place] [address] Dr. Nayeli Moore Urobilinogen Qn (U) 0.2 {Lianet'U}/dL Normal 0.2 - 1. 0 [facility] Comment on above: Performed By: #### V AGINT #### [facility] [address] [place] [address] Dr. Nayeli Moore US PREG AMNIOTIC FLUID VOLUM Rudy 05-21-2022 US PREG AMNIOTIC FLUID VOLUME EXAMINATION: US PREG AMNIOTIC FLUID VOLUME HISTORY: Contraction COMPARISON: 05/07/2022 TECHNIQUE: Limited sonographic examination for amniotic fluid volume FINDINGS: position: Cephalic presentation, longitudinal lie Amniotic fluid volume: 18.2 cm, 5th to 95th percentile 6.6 to 27.5 cm Largest fluid pocket: 6.5 cm Heart rate: 147 bpm IMPRESSION: Normal amniotic fluid volume Electronically authenticated by: MARKIE LANTIGUA Date: 2022-05-21 16:04 Normal [facility] GROUP B STREP CULTUREon 04-25 S. agalactiae Ag Ql (Unsp spec) Culture Observations: NEGATIVE FOR GROUP B STREPTOCOCCUS. Normal [facility] Comment on above: Performed By: #### G BSCX #### [facility] [address] [place] [address] Dr. Naylei Moore US PREG BIOPHY W NON STRESSo n 05-14-2022 US PREG BIOPHY W NON STRESS EXAMINATION: US PREG BIOPHY W NON STRESS HISTORY: Large for gestational age COMPARISON: Ultrasound growth 05/07/2022 TECHNIQUE: Ultrasound biophysical profile was performed. FINDINGS: BREATHING MOVEMENTS: 2.0 GROSS BODY MOVEMENTS: 2.0 TONE: 2.0 QUALITATIVE AMNIOTIC FLUID VOLUME: 2.0 PRESENTATION: CEPHALIC HEART RATE: 137.1 bpm bpm. AMNIOTIC FLUID VOLUME: 17.7 cm GESTATIONAL AGE: 36 weeks 0 days CONCLUSION: Total biophysical profile score 8.0. Electronically authenticated by: NIKO BURDICK Date: 2022-05-14 16:34 Normal [facility] CULTURE URINEon 05-10-2022 CULTURE URINE Isolate 1 Escherichia coli >100,000 cfu/mL of ORGANISM 1 Escherichia coli ANTIBIOTIC M.I.C RX STATUS Ampicillin <=2 S F Ampicillin/Sulbactam <=2 S F Piperacillin/Tazobact am <=4 S F Cefazolin <=4 S F Ceftazidime <=1 S F Ceftriaxone <=1 S F Ertapenem <=0.5 S F Imipenem <=0.25 S F Amikacin <=2 S F Gentamicin <=1 S F Tobramycin <=1 S F Ciprofloxacin <=0.25 S F Levofloxacin <=0.12 S F Nitrofurantoin <=16 S F Trimethoprim/Sulfamet hoxazole <=20 S F Normal [facility] Comment on above: Performed By: #### U RCX #### [facility] [address] [place] [address] Dr. Nayeli Moore UA (CLEAN/CATCH) YARD PERSON/MICRO I F IND.on 05-07-2022 Bilirubin Ql (U) Negative Normal NEGATIVE [facility] Comment on above: Performed By: #### U ACSJUANCARLOS UMICRO #### [facility] [address] [place] [address] Dr. Nayeli Moore Clarity (U) CLEAR Normal CLEAR [facility] Comment on above: Performed By: #### U ACSJUANCARLOS UMICRO #### [facility] [address] [place] [address] Dr. Nayeli Moore Color (U) LT. YELLOW Normal YELLOW [facility] Comment on above: Performed By: #### U ACSIND UMICRO #### [facility] [address] [place] [address] Dr. Nayeli Moore Glucose Ql (U) 100 mg/dl Abnormal NEGATIVE [facility] Comment on above: Performed By: #### U ACSIND, UMICRO #### [facility] [address] [address] [address] Nayeli Moore Hemoglobin Ql (U) TRACE-INTACT Abnormal NEGATIVE [facility] Comment on above: Performed By: #### U ACSIND, UMICRO #### [facility] [address] [address] [address] Nayeli Moore Ketones Ql (U) Negative Normal NEGATIVE [facility] Comment on above: Performed By: #### U ACSIND, UMICRO #### [facility] [address] [address] [address] Nayeli Moore LEUKOCYTES MODERATE Abnormal NEGATIVE [facility] Comment on above: Performed By: #### U ACSIND, UMICRO #### [facility] [address] [place] [address] Dr. Nayeli Moore Nitrite Ql (U) Positive Abnormal NEGATIVE [facility] Comment on above: Performed By: #### U ACSIND, UMICRO #### [facility] [address] [place] [address] Dr. Nayeli Moore pH (U) 6.5 [pH] Normal 5-9 [facility] Comment on above: Performed By: #### U ACSIND, UMICRO #### [facility] [address] [place] [address] Dr. Nayeli Moore SPEC GRAVITY 1.020 Normal 1.005-<=1.025 [facility] Comment on above: Performed By: #### U ACSIND, UMICRO #### [facility] [address] [place] [address] Dr. Nayeli Moore UA PROTEIN 30 mg/dl Abnormal NEGATIVE/ TRACE [facility] Comment on above: Performed By: #### U ACSIND, UMICRO #### [facility] [address] [place] [address] Dr. Nayeli Moore UR MICRO IND INDICATED Normal [facility] Comment on above: Performed By: #### U ACSIND, UMICRO #### [facility] [address] [place] [address] Dr. Nayeli Moore Urobilinogen Qn (U) 1.0 {Lianet'U}/dL Normal 0.2 - 1. 0 [facility] Comment on above: Performed By: #### U ACSJUANCARLOS, UMICRO #### [facility] [address] [place] [address] Dr. Nayeli Moore URINE MICROSCOPIC ONLYon BACTERIA LARGE Abnormal NONE SEEN [facility] Comment on above: Performed By: #### U ACSJUANCARLOS, UMICRO #### [facility] [address] [place] [address] Dr. Nayeli Moore Bacteria identified Cx Nom (U) INDICATED Normal [facility] Comment on above: Performed By: #### U ACSJUANCARLOS, UMICRO #### [facility] [address] [place] [address] Dr. Nayeli Moore CAST NONE SEEN Normal NONE SEEN [facility] Comment on above: Performed By: #### U ACSJUANCARLOS, UMICRO #### [facility] [address] [place] [address] Dr. Nayeli Moore Crystals LM Nom (Urine sed) NONE SEEN Normal NONE SEEN [facility] Comment on above: Performed By: #### U ACSJUANCARLOS UMICRO #### [facility] [address] [place] [address] Dr. Nayeli Moore Epithelial cells LM Ql (Urine sed) FEW Abnormal NONE SEEN /RARE [facility] Comment on above: Performed By: #### U ACSJUANCARLOS UMICRO #### [facility] [address] [place] [address] Dr. Nayeli Moore MUCOUS NONE SEEN Normal NONE SEEN [facility] Comment on above: Performed By: #### U ACSJUANCARLOS UMICRO #### [facility] [address] [place] [address] Dr. Nayeli Moore RBC 2-5 Abnormal 0-2 [facility] Comment on above: Performed By: #### U ACSJUANCARLOS, UMICRO #### [facility] [address] [place] [address] Dr. Nayeli Moore WBC 20-50 Abnormal NONE SEEN [facility] Comment on above: Performed By: #### U ACSIND, KATIEICRO #### [facility] [address] [place] [address] Dr. Nayeli Mooer PREG GROWTHon 05-07-2022 US PREG GROWTH EXAMINATION: US PREG GROWTH HISTORY: Excessive growth affecting management of mother COMPARISON: Ultrasound growth 04/16/2022 FINDINGS: Heart Rate: 162.7 bpm Number: 1.0 Position: CEPHALIC Amniotic Fluid Volume: 18.0 cm Maximum Vertical Pocket: 6.1 cm BIOMETRY: BPD: 9.2 cm cm; 37 weeks 3 days; 97% HC: 33.8 cmcm; 38 weeks 5 days; 95% AC: 33.7 cm cm; 37 weeks 4 days; >97% FL: 6.9 cm cm; 35 weeks 5 days; 60% EFW: 3156.7 grams; 96% FL/AC: 20.6 FL/BPD: 75.5 HC/AC: 1.0 GESTATIONAL AGE: Age by EDC: 35 weeks 0 days GAEL by EDC: 06/11/2022 Age by US: 37 weeks 3 days GAEL by US: 05/25/2022 IMPRESSION: 1. Single live intrauterine with growth detailed above. 2. Estimated weight is at 96th percentile. Biparietal diameter and abdominal circumference are at or above 97th percentile. Electronically authenticated by: NIKO BURDICK Date: 2022-05-07 15:35 Normal [facility] CULTURE URINEon 04-30-2022 CULTURE URINE Isolate 1 Escherichia coli >100,000 cfu/mL of ORGANISM 1 Escherichia coli ANTIBIOTIC M.I.C RX STATUS Amikacin <=2 S F Ampicillin <=2 S F Ampicillin/Sulbactam <=2 S F Cefazolin <=4 S F Ceftazidime <=1 S F Ceftriaxone <=1 S F Ciprofloxacin <=0.25 S F Ertapenem <=0.5 S F Gentamicin <=1 S F Imipenem <=0.25 S F Levofloxacin <=0.12 S F Nitrofurantoin <=16 S F Piperacillin/Tazobact am <=4 S F Tobramycin <=1 S F Trimethoprim/Sulfamet hoxazole <=20 S F Normal [facility] Comment on above: Performed By: #### U RCX #### [facility] [address] [address] [address] Nayeli Moore CBC AUTO DIFFon 04-28-2022 BASO # 0.1 103/ul Normal 0.0-0.1 [facility] Comment on above: Performed By: #### V AGINT #### [facility] [address] [address] [address] Nayeli Moore Basophils/100 WBC (Bld) 0.3 % Normal 0.2-2.0 [facility] Comment on above: Performed By: #### V AGINT #### [facility] [address] [place] [address] Dr. Nayeli Moore EO # 0.1 103/ul Normal 0.0-0.7 [facility] Comment on above: Performed By: #### V AGINT #### [facility] [address] [place] [address] Dr. Nayeli Moore Eosinophils/100 WBC (Bld) 0.5 % Critically low 0.9-7.0 [facility] Comment on above: Performed By: #### V AGINT #### [facility] [address] [place] [address] Dr. Nayeli Moore Erythrocyte distribution width (RBC) [Ratio] 12.0 % Normal 11.0-15.0 [facility] [facility] Comment [facility] above: Performed By: #### V AGINT #### [facility] [address] [place] [address] Dr. Nayeli Moore Hematocrit (Bld) [Volume fraction] 31.4 % Critically low 36.0-48.0 [facility] Comment on above: Performed By: #### V AGINT #### [facility] [address] [place] [address] Dr. Nayeli Moore Hemoglobin (Bld) [Mass/Vol] 10.5 g/dL Critically low 12.0-16.0 [facility] Comment on above: Performed By: #### V AGINT #### [facility] [address] [place] [address] Dr. Nayeli Moore IG # 0.10 10e3/ul Critically high 0.00-0.03 [facility] Comment on above: Performed By: #### V AGINT #### [facility] [address] [place] [address] Dr. Nayeli Moore IG % 0.5 % Normal 0.0-0.5 [facility] Comment on above: Performed By: #### V AGINT #### [facility] [address] [place] [address] Dr. Nayeli Moore LYMPH # 1.7 103/ul Normal 1.2-3.8 [facility] Comment on above: Performed By: #### V AGINT #### [facility] [address] [place] [address] Dr. Nayeli Moore Lymphocytes/100 WBC (Bld) 8.8 % Critically low 20.5-60.0 [facility] Comment on above: Performed By: #### V AGINT #### [facility] [address] [place] [address] Dr. Nayeli Moore MANUAL DIFF REQ NO Normal [facility] Comment on above: Performed By: #### V AGINT #### [facility] [address] [place] [address] Dr. Nayeli Moore MCH (RBC) [Entitic mass] 28.4 pg Normal 26.7-34.0 [facility] Comment on above: Performed By: #### V AGINT #### [facility] [address] [place] [address] Dr. Nayeli Moore MCHC (RBC) [Mass/Vol] 33.4 g/dL Normal 29.9-35.2 [facility] Comment on above: Performed By: #### V AGINT #### [facility] [address] [place] [address] Dr. Nayeli Moore MCV (RBC) [Entitic vol] 84.9 fL Normal 81.0-99.0 [facility] Comment on above: Performed By: #### V AGINT #### [facility] [address] [place] [address] Dr. Nayeli Moore MONO # 1.6 103/ul Critically high 0.3-0.8 [facility] Comment on above: Performed By: #### V AGINT #### [facility] [address] [place] [address] Dr. Nayeli Moore Monocytes/100 WBC (Bld) 8.2 % Normal 1.7-12.0 [facility] Comment on above: Performed By: #### V AGINT #### [facility] [address] [place] [address] Dr. Nayeli Moroe NEUT # 15.6 103/ul Critically high 1.4-6.5 [facility] Comment on above: Performed By: #### V AGINT #### [facility] [address] [place] [address] Dr. Nayeli Moore Neutrophils/100 WBC (Bld) 81.7 % Critically high 43.0-75.0 [facility] Comment on above: Performed By: #### V AGINT #### [facility] [address] [place] [address] Dr. Nayeli Moore Platelet mean volume (Bld) [Entitic vol] 10.4 fL Normal 9.5-13.5 [facility] Comment on above: Performed By: #### V AGINT #### [facility] [address] [place] [address] Dr. Nayeli Moore PLT 209 103/ul Normal 150-450 [facility] Comment on above: Performed By: #### V AGINT #### [facility] [address] [place] [address] Dr. Nayeli Moore RBC 3.70 106/ul Critically low 4.20-5.40 [facility] Comment on above: Performed By: #### V AGINT #### [facility] [address] [place] [address] Dr. Nayeli Moore WBC 19.1 103/ul Critically high 4.0-11.0 [facility] Comment on above: Performed By: #### V AGINT #### [facility] [address] [place] [address] Dr. Nayeli Moore LDHon 04-28-2022 LDH 128 U/L Normal 81-234 [facility] Comment on above: Performed By: #### U ACSIND, UMICRO #### [facility] [address] [address] [address] Nayeli Moore PROF 14(COMP METB)on 022 Albumin [Mass/Vol] 2.5 g/dL Critically low 3.4-5.0 [facility] Comment on above: Performed By: #### H BSANS #### [facility] [address] [address] [address] Nayeli Moore Albumin/Globulin [Mass ratio] 0.6 {ratio} Normal [facility] Comment on above: Performed By: #### H BSANS #### [facility] [address] [address] [address] Nayeli Moore ALP [Catalytic activity/Vol] 153 U/L Critically high 46-116 [facility] Comment on above: Performed By: #### H BSANS #### [facility] [address] [address] [address] Nayeli Moore ALT [Catalytic activity/Vol] 9 U/L Critically low 14-59 [facility] Comment on above: Performed By: #### H BSANS #### [facility] [address] [address] [address] Nayeli Moore Anion gap [Moles/Vol] 11.7 mmol/L Normal [facility] Comment on above: Performed By: #### H BSANS #### [facility] [address] [address] [address] Nayeli Moore AST [Catalytic activity/Vol] 10 U/L Critically low 15-37 [facility] Comment on above: Performed By: #### H BSANS #### [facility] [address] [address] [address] Nayeli Moore Bilirubin [Mass/Vol] 0.4 mg/dL Normal 0.2-1.0 [facility] Comment on above: Performed By: #### H BSANS #### [facility] [address] [address] [address] Nayeli Moore Calcium [Mass/Vol] 8.5 mg/dL Normal 8.5-10.1 [facility] Comment on above: Performed By: #### H BSANS #### [facility] [address] [address] [address] Nayeli Moore Chloride [Moles/Vol] 101 mmol/L Normal 98-107 [facility] Comment on above: Performed By: #### H BSANS #### [facility] [address] [address] [address] Nayeli Moore CO2 [Moles/Vol] 23.5 mmol/L Normal 21.0-32.0 [facility] Comment on above: Performed By: #### H BSANS #### [facility] [address] [address] [address] Nayeli Moore Creatinine [Mass/Vol] 0.36 mg/dL Critically low 0.55-1.02 [facility] Comment on above: Performed By: #### H BSANS #### [facility] [address] [place] [address] Dr. Nayeli Moore EGFR-AF INDIAN >60 Normal >=60 [facility] Comment on above: Performed By: #### H BSANS #### [facility] [address] [address] [address] Nayeli Moore EGFR-NON AF INDIAN >60 Normal >=60 [facility] Comment on above: Performed By: #### H BSANS #### [facility] [address] [place] [address] Dr. Nayeli Moore Globulin (S) [Mass/Vol] 4.1 g/dL Normal [facility] Comment on above: Performed By: #### H BSANS #### [facility] [address] [place] [address] Dr. Nayeli Moore Glucose [Mass/Vol] 81 mg/dL Normal 74-106 [facility] Comment on above: Performed By: #### H BSANS #### [facility] [address] [address] [address] Nayeli Moore Potassium [Moles/Vol] 3.2 mmol/L Critically low 3.5-5.1 [facility] Comment on above: Performed By: #### H BSANS #### [facility] [address] [address] [address] Nayeli Moore Protein [Mass/Vol] 6.6 g/dL Normal 6.4-8.2 [facility] Comment on above: Performed By: #### H BSANS #### [facility] [address] [address] [address] Nayeli Moore Sodium [Moles/Vol] 133 mmol/L Critically low 136-145 [facility] Comment on above: Performed By: #### H BSANS #### [facility] [address] [address] [address] Nayeli Moore Urea nitrogen [Mass/Vol] 5.0 mg/dL Critically low 7.0-18.0 [facility] Comment on above: Performed By: #### H BSANS #### [facility] [address] [place] [address] Dr. Nayeli Moore Urea nitrogen/Creatinine [Mass ratio] 13.9 mg/mg Normal [facility] Comment on above: Performed By: #### H BSANS #### [facility] [address] [place] [address] Dr. Nayeli Moore URIC ACID SERUMon 04-28-2022 Urate [Mass/Vol] 1.8 mg/dL Critically low 2.6-6.0 [facility] Comment on above: Performed By: #### H BSANS #### [facility] [address] [place] [address] Dr. Nayeli Moore US PREG CERVICAL LENGTHon US PREG CERVICAL LENGTH EXAMINATION: US PREG CERVICAL LENGTH HISTORY: Contraction COMPARISON: Ultrasound cervical length 03/09/2022 TECHNIQUE: Transabdominal and transvaginal sonographic examination for cervical length. FINDINGS: CERVIX LENGTH: 4.2 cm in length and closed, which decreases to 3.9 cm with fundal pressure and 3.3 cm during Valsalva. POSITION: Cephalic HEART RATE: 145 bpm Age by EDC: 33 weeks 5 days GAEL by EDC: 06/11/2022 IMPRESSION: 1. Single live intrauterine . 2. Closed cervix 4.2 cm in length; not significantly changed compared to prior study. Electronically authenticated by: NIKO BURDICK Date: 2022-04-28 10:11 Normal [facility] UA (CLEAN/CATCH) YARD PERSON/MICRO I F IND.on 04-27-2022 Bilirubin Ql (U) Negative Normal NEGATIVE [facility] Comment on above: Performed By: #### U RCX #### [facility] [address] [place] [address] Dr. Nayeli Moore Clarity (U) CLEAR Normal CLEAR [facility] Comment on above: Performed By: #### U RCX #### [facility] [address] [place] [address] Dr. Nayeli Moore Color (U) LT. YELLOW Normal YELLOW [facility] Comment on above: Performed By: #### U RCX #### [facility] [address] [place] [address] Dr. Nayeli Moore Glucose Ql (U) Negative Normal NEGATIVE [facility] Comment on above: Performed By: #### U RCX #### [facility] [address] [place] [address] Dr. Nayeli Moore Hemoglobin Ql (U) Negative Normal NEGATIVE [facility] Comment on above: Performed By: #### U RCX #### [facility] [address] [place] [address] Dr. Nayeli Moore Ketones Ql (U) Negative Normal NEGATIVE [facility] Comment on above: Performed By: #### U RCX #### [facility] [address] [place] [address] Dr. Nayeli Moore LEUKOCYTES MODERATE Abnormal NEGATIVE [facility] Comment on above: Performed By: #### U RCX #### [facility] [address] [place] [address] Dr. Nayeli Moore Nitrite Ql (U) Positive Abnormal NEGATIVE [facility] Comment on above: Performed By: #### U RCX #### [facility] [address] [place] [address] Dr. Nayeli Moore pH (U) 7.0 [pH] Normal 5-9 [facility] Comment on above: Performed By: #### U RCX #### [facility] [address] [place] [address] Dr. Nayeli Moore SPEC GRAVITY 1.015 Normal 1.005-<=1.025 [facility] Comment on above: Performed By: #### U RCX #### [facility] [address] [place] [address] Dr. Nayeli Moore UA PROTEIN Negative Normal NEGATIVE/ TRACE [facility] Comment on above: Performed By: #### U RCX #### [facility] [address] [place] [address] Dr. Nayeli Moore UR MICRO IND INDICATED Normal [facility] Comment on above: Performed By: #### U RCX #### [facility] [address] [place] [address] Dr. Nayeli Moore Urobilinogen Qn (U) 0.2 {Lianet'U}/dL Normal 0.2 - 1. 0 [facility] Comment on above: Performed By: #### U RCX #### [facility] [address] [place] [address] Dr. Nayeli Moore URINE MICROSCOPIC ONLYon BACTERIA MODERATE Abnormal NONE SEEN [facility] Comment on above: Performed By: #### U RCX #### [facility] [address] [place] [address] Dr. Nayeli Moore Bacteria identified Cx Nom (U) INDICATED Normal [facility] Comment on above: Performed By: #### U RCX #### [facility] [address] [place] [address] Dr. Nayeli Moore CAST NONE SEEN Normal NONE SEEN [facility] Comment on above: Performed By: #### U RCX #### [facility] [address] [place] [address] Dr. Nayeli Moore Crystals LM Nom (Urine sed) NONE SEEN Normal NONE SEEN [facility] Comment on above: Performed By: #### U RCX #### [facility] [address] [place] [address] Dr. Nayeli Moore Epithelial cells LM Ql (Urine sed) MODERATE Abnormal NONE SEEN /RARE [facility] Comment on above: Performed By: #### U RCX #### [facility] [address] [place] [address] Dr. Nayeli Moore MUCOUS TRACE Abnormal NONE SEEN [facility] Comment on above: Performed By: #### U RCX #### [facility] [address] [place] [address] Dr. Nayeli Moore RBC 2-5 Abnormal 0-2 [facility] Comment on above: Performed By: #### U RCX #### [facility] [address] [place] [address] Dr. Nayeli Moore WBC 10-20 Abnormal NONE SEEN [facility] Comment on above: Performed By: #### U RCX #### [facility] [address] [place] [address] Dr. Nayeli Moore US PREG BIOPHY W NON STRESSo n 04-24-2022 US PREG BIOPHY W NON STRESS EXAMINATION: US PREG BIOPHY W NON STRESS HISTORY: Ultrasound scan abnormal COMPARISON: No relevant comparison available. TECHNIQUE: Ultrasound biophysical profile was performed in the radiology department. FINDINGS: BREATHING MOVEMENTS: 2.0 GROSS BODY MOVEMENTS: 2.0 TONE: 2.0 QUALITATIVE AMNIOTIC FLUID VOLUME: 2.0 PRESENTATION: Cephalic HEART RATE: 120.5 bpm H.B./min AMNIOTIC FLUID VOLUME: 17.0 cm cm GESTATIONAL AGE: 33 weeks 1 days CONCLUSION: Total biophysical profile score: 8.0 Electronically authenticated by: MARKIE LANTIGUA Date: 2022-04-24 16:57 Normal [facility] AMNISUREon 04-23-2022 AMNISURE Negative Normal NEGATIVE [facility] Comment on above: Performed By: #### U RCX #### [facility] [address] [place] [address] Dr. Nayeli Moore UA (CLEAN/CATCH) YARD PERSON/MICRO I F IND.on 04-23-2022 Bilirubin Ql (U) Negative Normal NEGATIVE [facility] Comment on above: Performed By: #### U ACSLIV BAUER #### [facility] [address] [place] [address] Dr. Nayeli Moore Clarity (U) CLEAR Normal CLEAR [facility] Comment on above: Performed By: #### U ACSIND, UMICRO #### [facility] [address] [address] [address] Nayeli Moore Color (U) LT. YELLOW Normal YELLOW [facility] Comment on above: Performed By: #### U ACSIND, UMICRO #### [facility] [address] [address] [address] Nayeli Moore Glucose Ql (U) Negative Normal NEGATIVE [facility] Comment on above: Performed By: #### U ACSIND, UMICRO #### [facility] [address] [address] [address] Nayeli Moore Hemoglobin Ql (U) Negative Normal NEGATIVE [facility] Comment on above: Performed By: #### U ACSIND, UMICRO #### [facility] [address] [place] [address] Dr. Nayeli Moore Ketones Ql (U) Negative Normal NEGATIVE [facility] Comment on above: Performed By: #### U ACSIND, UMICRO #### [facility] [address] [place] [address] Dr. Nayeli Moore LEUKOCYTES Negative Normal NEGATIVE [facility] Comment on above: Performed By: #### U ACSJUANCARLOS, UMICRO #### [facility] [address] [place] [address] Dr. Nayeli Moore Nitrite Ql (U) Negative Normal NEGATIVE [facility] Comment on above: Performed By: #### U ACSIND, UMICRO #### [facility] [address] [place] [address] Dr. Nayeli Moore pH (U) 6.5 [pH] Normal 5-9 [facility] Comment on above: Performed By: #### U ACSIND, UMICRO #### [facility] [address] [place] [address] Dr. Nayeli Moore SPEC GRAVITY <=1.005 Abnormal 1.005-<=1.025 [facility] Comment on above: Performed By: #### U ACSIND, UMICRO #### [facility] [address] [place] [address] Dr. Nayeli Moore UA PROTEIN Negative Normal NEGATIVE/ TRACE [facility] Comment on above: Performed By: #### U ACSIND, UMICRO #### [facility] [address] [address] [address] Nayeli Moore UR MICRO IND NOT INDICATED Normal [facility] Comment on above: Performed By: #### U ACSIND, UMICRO #### [facility] [address] [address] [address] Nayeli Moore Urobilinogen Qn (U) 0.2 {Lianet'U}/dL Normal 0.2 - 1. 0 [facility] Comment on above: Performed By: #### U ACSIND, UMICRO #### [facility] [address] [place] [address] Dr. Nayeli Moore US PREG BIOPHY W NON STRESSo n 04-23-2022 US PREG BIOPHY W NON STRESS EXAMINATION: US PREG BIOPHY W NON STRESS HISTORY: Amniotic fluid leaking COMPARISON: Ultrasound growth 04/16/2022 TECHNIQUE: Ultrasound biophysical profile was performed. FINDINGS: BREATHING MOVEMENTS: 0.0 GROSS BODY MOVEMENTS: 2.0 TONE: 2.0 QUALITATIVE AMNIOTIC FLUID VOLUME: 2.0 PRESENTATION: CEPHALIC HEART RATE: 123.9 bpm bpm. AMNIOTIC FLUID VOLUME: 18.0 cm GESTATIONAL AGE: 33 weeks 0 days CONCLUSION: 1. Total biophysical profile score 6.0. 2. Normal amniotic fluid volume. Electronically authenticated by: NIKO BURDICK Date: 2022-04-23 14:23 Normal [facility] US PREG GROWTHon 04-16-2022 US PREG GROWTH EXAMINATION: US PREG GROWTH HISTORY: Large for gestation age fetus COMPARISON: Ultrasound anatomy 01/29/2022 FINDINGS: Heart Rate: 137.8 bpm Number: 1.0 Position: CEPHALIC Amniotic Fluid Volume: 17.6 cm Maximum Vertical Pocket: 5.8 cm BIOMETRY: BPD: 8.6 cm cm; 34 weeks 5 days; >97% HC: 31.0 cmcm; 34 weeks 4 days; 82% AC: 30.8 cm cm; 34 weeks 6 days; >97% FL: 6.5 cm cm; 33 weeks 3 days; 77% EFW: 2422.0 grams; >97% FL/AC: 21.0 FL/BPD: 75.4 HC/AC: 1.0 GESTATIONAL AGE: Age by EDC: 32 weeks 0 days GAEL by EDC: 06/11/2022 Age by US: 34 weeks 3 days GAEL by US: 05/25/2022 IMPRESSION: 1. Single live intrauterine with growth detailed above. 2. Estimated weight is greater than 97th percentile. Electronically authenticated by: NIKO BURDICK Date: 2022-04-16 16:34 Normal [facility] GLUCOSE - 1HRon 03-17-2022 Glucose [Mass/Vol] 105 mg/dL Normal 74-106 [facility] Comment on above: Performed By: #### V AGINT #### [facility] [address] [place] [address] Dr. Nayeli Moore HEMOGRAM AND PLATELon 2021 Hematocrit (Bld) [Volume fraction] 32.2 % Critically low 36.0-48.0 [facility] Comment on above: Performed By: #### U RCX #### [facility] [address] [place] [address] Dr. Nayeli Moore Hemoglobin (Bld) [Mass/Vol] 10.9 g/dL Critically low 12.0-16.0 [facility] Comment on above: Performed By: #### U RCX #### [facility] [address] [place] [address] Dr. Nayeli Moroe MCH (RBC) [Entitic mass] 30.3 pg Normal 26.7-34.0 [facility] Comment on above: Performed By: #### U RCX #### [facility] [address] [place] [address] Dr. Nayeli Moore MCHC (RBC) [Mass/Vol] 33.9 g/dL Normal 29.9-35.2 [facility] Comment on above: Performed By: #### U RCX #### [facility] [address] [place] [address] Dr. Nayeli Moore MCV (RBC) [Entitic vol] 89.4 fL Normal 81.0-99.0 [facility] Comment on above: Performed By: #### U RCX #### [facility] [address] [address] [address] Nayeli Moore PLT 221 103/ul Normal 150-450 [facility] Comment on above: Performed By: #### U RCX #### [facility] [address] [place] [address] Dr. Nayeli Moore RBC 3.60 106/ul Critically low 4.20-5.40 [facility] Comment on above: Performed By: #### U RCX #### [facility] [address] [place] [address] Dr. Nayeli Moore WBC 9.1 103/ul Normal 4.0-11.0 [facility] Comment on above: Performed By: #### U RCX #### [facility] [address] [place] [address] Dr. Nayeli Moore CULTURE URINEon 03-12-2022 CULTURE URINE Isolate 1 Escherichia coli >100,000 cfu/mL of ORGANISM 1 Escherichia coli ANTIBIOTIC M.I.C RX STATUS Ampicillin 8 S F Ampicillin/Sulbactam 4 S F Piperacillin/Tazobact am <=4 S F Cefazolin <=4 S F Ceftazidime <=1 S F Ceftriaxone <=1 S F Ertapenem <=0.5 S F Imipenem <=0.25 S F Amikacin <=2 S F Gentamicin <=1 S F Tobramycin <=1 S F Ciprofloxacin <=0.25 S F Levofloxacin <=0.12 S F Nitrofurantoin <=16 S F Trimethoprim/Sulfamet hoxazole <=20 S F Normal [facility] Comment on above: Performed By: #### U RCX #### [facility] [address] [place] [address] Dr. Nayeli Moore UA (CLEAN/CATCH) YARD PERSON/MICRO I F IND.on 03-09-2022 Bilirubin Ql (U) Negative Normal NEGATIVE [facility] Comment on above: Performed By: #### V AGINT #### [facility] [address] [place] [address] Dr. Nayeli Moore Clarity (U) CLEAR Normal CLEAR [facility] Comment on above: Performed By: #### V AGINT #### [facility] [address] [address] [address] Nayeli Moore Color (U) LT. YELLOW Normal YELLOW [facility] Comment on above: Performed By: #### V AGINT #### [facility] [address] [place] [address] Dr. Nayeli Moore Glucose Ql (U) Negative Normal NEGATIVE [facility] Comment on above: Performed By: #### V AGINT #### [facility] [address] [address] [address] Nayeli Moore Hemoglobin Ql (U) Negative Normal NEGATIVE [facility] Comment on above: Performed By: #### V AGINT #### [facility] [address] [place] [address] Dr. Nayeli Moore Ketones Ql (U) Negative Normal NEGATIVE [facility] Comment on above: Performed By: #### V AGINT #### [facility] [address] [place] [address] Dr. Nayeli Moore LEUKOCYTES SMALL Abnormal NEGATIVE [facility] Comment on above: Performed By: #### V AGINT #### [facility] [address] [place] [address] Dr. Nayeli Moore Nitrite Ql (U) Negative Normal NEGATIVE [facility] Comment on above: Performed By: #### V AGINT #### [facility] [address] [place] [address] Dr. Nayeli Moore pH (U) 6.5 [pH] Normal 5-9 [facility] Comment on above: Performed By: #### V AGINT #### [facility] [address] [place] [address] Dr. Nayeli Moore SPEC GRAVITY <=1.005 Abnormal 1.005-<=1.025 [facility] Comment on above: Performed By: #### V AGINT #### [facility] [address] [place] [address] Dr. Nayeli Moore UA PROTEIN Negative Normal NEGATIVE/ TRACE [facility] Comment on above: Performed By: #### V AGINT #### [facility] [address] [place] [address] Dr. Nayeli Moore UR MICRO IND INDICATED Normal [facility] Comment on above: Performed By: #### V AGINT #### [facility] [address] [place] [address] Dr. Nayeli Moore Urobilinogen Qn (U) 0.2 {Lianet'U}/dL Normal 0.2 - 1. 0 [facility] Comment on above: Performed By: #### V AGINT #### [facility] [address] [place] [address] Dr. Nayeli Moore URINE MICROSCOPIC ONLYon BACTERIA SMALL Abnormal NONE SEEN [facility] Comment on above: Performed By: #### U RCX #### [facility] [address] [place] [address] Dr. Nayeli Moore Bacteria identified Cx Nom (U) INDICATED Normal [facility] Comment on above: Performed By: #### U RCX #### [facility] [address] [place] [address] Dr. Nayeli Moore CAST NONE SEEN Normal NONE SEEN [facility] Comment on above: Performed By: #### U RCX #### [facility] [address] [place] [address] Dr. Nayeli Moore Crystals LM Nom (Urine sed) NONE SEEN Normal NONE SEEN [facility] Comment on above: Performed By: #### U RCX #### [facility] [address] [place] [address] Dr. Nayeli Moore Epithelial cells LM Ql (Urine sed) FEW Abnormal NONE SEEN /RARE [facility] Comment on above: Performed By: #### U RCX #### [facility] [address] [place] [address] Dr. Nayeli Moore MUCOUS NONE SEEN Normal NONE SEEN [facility] Comment on above: Performed By: #### U RCX #### [facility] [address] [place] [address] Dr. Nayeli Moore RBC 0-2 Normal 0-2 [facility] Comment on above: Performed By: #### U RCX #### [facility] [address] [place], [place] [id number] Dr. Nayeli Moore WBC 10-20 Abnormal NONE SEEN [facility] Comment on above: Performed By: #### U RCX #### [facility] [address] [place] [address] Dr. Nayeli Moore PAP ACOG PANEL 2: 21 to 29on 03-06-2022 . . Normal [facility] Comment on above: Result Comment: Perf ormed at: [facility] Performed By: #### U RCX #### [facility] [address] [place] [address] Dr. Nayeli Moore Age Gdln ACOG Testing - Normal [facility] Comment on above: Performed By: #### U RCX #### [facility] [address] [place] [address] Dr. Nayeli Moore DIAGNOSIS: Comment Abnormal [facility] Comment on above: Result Comment: EPIT HELIAL CELL ABNORMALITY. LOW-GRADE SQUAMOUS INTRAEPITHELIAL LESION (LSIL); (ENCOMPASSING HUMAN PAPILLOMAVIRUS /MILD DYSPLASIA/CIN1). Performed at: [facility] Performed By: #### U RCX #### [facility] [address] [place] [address] Dr. Nayeli Moore Electronically signed by: Comment Normal [facility] Comment on above: Result Comment: Lopez Astorga MD (Charles), Pathologist Performed at: [facility] Performed By: #### U RCX #### [facility] [address] [place] [address] Dr. Nayeli Moore Methodology: Comment Normal [facility] Comment on above: Result Comment: This liquid based ThinPrep(R) pap test was screened with the use of an image guided system. Performed at: WB Performed By: #### U RCX #### [facility] [address] [place] [address] Dr. Nayeli Moore Note: Comment Normal [facility] Comment on above: Result Comment: The Pap smear is a screening test designed to aid in the detection of premalignant and malignant conditions of the uterine cervix. It is not a diagnostic procedure and should not be used as the sole means of detecting cervical cancer. Both false-positive and false-negative reports do occur. . Performed at: WB Performed By: #### U RCX #### [facility] [address] [address] [address] Nayeli Moore Pathologist Provided ICD10 Comment [facility] Comment on above: Result Comment: [id number] Performed at: [facility] Performed By: #### U RCX #### [facility] [address] [address] [address] Nayeli Moore Performed by: Comment Normal [facility] Comment on above: Result Comment: Zen Farrell, Biopharmaceutical Rep (ASCP) Performed at: WB Performed By: #### U RCX #### [facility] [address] [address] [address] Nayeli Moore Reflex Criteria: Comment [facility] Comment on above: Result Comment: The HPV DNA reflex criteria were not met with this specimen result therefore, no HPV testing was performed. . Performed at: [facility] Performed By: #### U RCX #### [facility] [address] [address] [address] Nayeli Moore Specimen adequacy: Comment Normal [facility] Comment on above: Result Comment: Sati sfactory for evaluation. Endocervical and/or squamous metaplastic cells (endocervical component) are present. Performed at: [facility] Performed By: #### U RCX #### [facility] [address] [place] [address] Dr. Nayeli Moore CULTURE URINEon 03-01-2022 CULTURE URINE Isolate 1 Escherichia coli >100,000 cfu/mL of ORGANISM 1 Escherichia coli ANTIBIOTIC M.I.C RX STATUS Ampicillin <=2 S F Ampicillin/Sulbactam <=2 S F Piperacillin/Tazobact am <=4 S F Cefazolin <=4 S F Ceftazidime <=1 S F Ceftriaxone <=1 S F Ertapenem <=0.5 S F Imipenem <=0.25 S F Amikacin <=2 S F Gentamicin <=1 S F Tobramycin <=1 S F Ciprofloxacin <=0.25 S F Levofloxacin <=0.12 S F Nitrofurantoin <=16 S F Trimethoprim/Sulfamet hoxazole <=20 S F Normal [facility] Comment on above: Performed By: #### U RCX #### [facility] [address] [address] [address] Nayeli Moore CHLAMYDIA/GONOCOCCUS MING (SW AB/URINE/PAPon 02-28-2022 Chlamydia trachomatis, MING Negative Normal Negative [facility] Comment on above: Performed By: #### U RCX #### [facility] [address] [address] [address] Nayeli Moore Neisseria gonorrhoeae, MING Negative Normal Negative [facility] Comment on above: Performed By: #### U RCX #### [facility] [address] [address] [address] Nayeli Moore VAGINITIS/VAGINOSIS DNA PROB Rudy 02-28-2022 Lois species Negative Normal Negative [facility] Comment on above: Performed By: #### V AGINT #### [facility] [address] [place] [address] Dr. Nayeli Moore Gardnerella vaginalis Negative Normal Negative [facility] Comment on above: Performed By: #### V AGINT #### [facility] [address] [place] [address] Dr. Nayeli Moore Trichomonas vaginalis Negative Normal Negative [facility] Comment on above: Performed By: #### V AGINT #### [facility] [address] [place] [address] Dr. Nayeli Moore CULTURE URINEon 02-01-2022 CULTURE URINE Isolate 1 Escherichia coli >100,000 cfu/mL of ORGANISM 1 Escherichia coli ANTIBIOTIC M.I.C RX STATUS Ampicillin <=2 S F Ampicillin/Sulbactam <=2 S F Piperacillin/Tazobact am <=4 S F Cefazolin <=4 S F Ceftazidime <=1 S F Ceftriaxone <=1 S F Ertapenem <=0.5 S F Imipenem <=0.25 S F Amikacin <=2 S F Gentamicin <=1 S F Tobramycin <=1 S F Ciprofloxacin <=0.25 S F Levofloxacin <=0.12 S F Nitrofurantoin <=16 S F Trimethoprim/Sulfamet hoxazole <=20 S F Normal [facility] Comment on above: Performed By: #### U RCX #### [facility] [address] [address] [address] Nayeli Moore US PREG ANATOMY SINGLEon US PREG ANATOMY SINGLE EXAMINATION: US PREG ANATOMY SINGLE HISTORY: anatomy study COMPARISON: No relevant comparison available. TECHNIQUE: Transabdominal sonographic examination was performed for obstetrical and evaluation. FINDINGS: Number: 1 Heart Rate: 148 H.B. /min Amniotic Fluid Volume: Subjectively normal position: Breech presentation, longitudinal lie Placental Location: Posterior. Grade 0. Placental edge 5.9 cm from the cervical os Cervix Length: 5.1 cm, closed Normally visualized anatomy: Cerebellum, choroid plexus, cisterna magna, lateral cerebral ventricles, orbits, midline falx, hard palate, four-chamber heart, RVOT, LVOT, stomach, kidneys, bladder, umbilical cord insertion into the abdomen, three-vessel cord, cervical spine, thoracic spine, lumbar spine, sacral spine, right upper extremity, left upper extremity, right lower extremity, left lower extremity Suboptimally visualized anatomy: None BIOMETRY: BPD: 5.2 cm, 21 weeks 6 days, 81% HC: 19.3 cm, 20 weeks 4 days, 66% AC: 17.6 cm, 22 weeks 4 days, 87% FL: 3.67 cm, 21 weeks 5 days, 65% EFW:474 g, 1 lb. 1 oz., 93%; FL/AC: 20.8 FL/BPD: 70.17 HC/AC: 1.1 GESTATIONAL AGE: Age by EDC: 21 weeks 0 days GAEL by EDC: 06/11/2022 Age by current US: 22 weeks 0 days GAEL by current US: 06/04/2022 IMPRESSION: Normal anatomy scan *Reference: [employer] Practice Guideline for the performance of Obstetric Ultrasound Examinations, February 22, 2007. Electronically authenticated by: MARKIE LANTIGUA Date: 2022-01-29 14:10 Normal [facility] HIV 1 AND 2 WITH REFLEXon HIV Screen 4th Generation wRfx Non-Reactive Normal Non Reactive [facility] Comment on above: Result Comment: HIV Negative HIV-1/HIV-2 antibodies and HIV-1 p24 antigen were NOT detected. There is no laboratory evidence of HIV infection. Performed By: #### H GERNS #### [facility] [address] [place] [address] Dr. Nayeli Moore RPR QUANTon 12-09-2021 Rapid Plasma Reagin, Quant Non-Reactive Normal NonRea<1:1 [facility] Comment on above: Result Comment: Plea se Note: This test does not meet current guidelines for screening and diagnosis of syphilis. This test is intended for following treatment response in patients being treated for syphilis infection. To screen for syphilis infection, a reflex cascade that includes both RPR and a treponema-specific assay should be utilized, such as Treponema pallidum (Syphilis) Screening Adrian (292398) or Rapid Plasma Reagin (RPR) Test With Reflex to Quantitative RPR and Confirmatory Treponema pallidum Antibodies (525084). Performed By: #### H TYLER #### [facility] [address] [place] [address] Dr. Nayeli Moore HEP B SURFACE ANTIGEN SCREEN on 12-08-2021 HBsAg Screen Negative Normal Negative [facility] Comment on above: Performed By: #### H TYLER #### [facility] [address] [place] [address] Dr. Nayeli Moore Performed By: #### U LIV MANE #### [facility] [address] [place] [address] Dr. Nayeli Moore HEPATITIS C ANTIBODYon 12-08 Hep C Virus Ab <0.1 Normal 0.0-0.9 [facility] Comment on above: Result Comment: Nega tive: < 0.8 Indeterminate: 0.8 - 0.9 Positive: > 0.9 . HCV antibody alone does not differentiate between previous resolved infection and active infection. The CDC and current clinical guidelines recommend that a positive HCV antibody result be followed up with an HCV RNA test to support the diagnosis of acute HCV infection. [facility] offers Hepatitis C Virus (HCV) RNA, Diagnosis, MING (784629) and Hepatitis C Virus (HCV) Antibody with reflex to Quantitative Real-time PCR (195723). Performed By: #### U LIV AMNE #### [facility] [address] [place], [place] [id number] Dr. Nayeli Moore Performed By: #### V AGINT #### [facility] [address] [place] [address] Dr. Nayeli Moore RUBELLA AB IGGon 12-08-2021 Rubella Antibodies, IgG 16.10 index Normal Immune >0.99 [facility] Comment on above: Result Comment: Non- immune <0.90 Equivocal 0.90 - 0.99 Immune >0.99 Performed By: #### U RCX #### [facility] [address] [place] [address] Dr. Nayeli Moore CBC AUTO DIFFon 12-07-2021 BASO # 0.0 103/ul Normal 0.0-0.1 [facility] Comment on above: Performed By: #### U ACSIND, UMICRO #### [facility] [address] [place] [address] Dr. Nayeli Moore Basophils/100 WBC (Bld) 0.2 % Normal 0.2-2.0 [facility] Comment on above: Performed By: #### U ACSIND, UMICRO #### [facility] [address] [place] [address] Dr. Nayeli Moore EO # 0.1 103/ul Normal 0.0-0.7 [facility] Comment on above: Performed By: #### U ACSIND, UMICRO #### [facility] [address] [place] [address] Dr. Nayeli Moore Eosinophils/100 WBC (Bld) 1.1 % Normal 0.9-7.0 [facility] Comment on above: Performed By: #### U ACSIND, UMICRO #### [facility] [address] [place] [address] Dr. Nayeli Moore Erythrocyte distribution width (RBC) [Ratio] 11.9 % Normal 11.0-15.0 [facility] Comment on above: Performed By: #### U ACSIND, UMICRO #### [facility] [address] [place] [address] Dr. Nayeli Moore Hematocrit (Bld) [Volume fraction] 38.8 % Normal 36.0-48.0 [facility] Comment on above: Performed By: #### U ALHAJI UMICRO #### [facility] [address] [place] [address] Dr. Nayeli Moore Hemoglobin (Bld) [Mass/Vol] 13.1 g/dL Normal 12.0-16.0 [facility] Comment on above: Performed By: #### U ALHAJI UMICRO #### [facility] [address] [place] [address] Dr. Nayeli Moore IG # 0.03 10e3/ul Normal 0.00-0.03 [facility] Comment on above: Performed By: #### U ALHAJI UMICRO #### [facility] [address] [place] [address] Dr. Nayeli Moore IG % 0.3 % Normal 0.0-0.5 [facility] Comment on above: Performed By: #### Pepe MANE UMICRO #### [facility] [address] [place] [address] Dr. Nayeli Moore LYMPH # 1.5 103/ul Normal 1.2-3.8 [facility] Comment on above: Performed By: #### Pepe MANE UMICRO #### [facility] [address] [place] [address] Dr. Nayeli Moore Lymphocytes/100 WBC (Bld) 13.6 % Critically low 20.5-60.0 [facility] Comment on above: Performed By: #### Pepe MANE UMICRO #### [facility] [address] [place] [address] Dr. Nayeli Moore MANUAL DIFF REQ NO Normal [facility] Comment on above: Performed By: #### U ALHAJI UMICRO #### [facility] [address] [place] [address] Dr. Nayeli Moore MCH (RBC) [Entitic mass] 30.8 pg Normal 26.7-34.0 [facility] Comment on above: Performed By: #### U ALHAJI UMICRO #### [facility] [address] [place] [address] Dr. Nayeli Moore MCHC (RBC) [Mass/Vol] 33.8 g/dL Normal 29.9-35.2 [facility] Comment on above: Performed By: #### U ACSJUANCARLOS, UMICRO #### [facility] [address] [address] [address] Nayeli Moore MCV (RBC) [Entitic vol] 91.1 fL Normal 81.0-99.0 [facility] Comment on above: Performed By: #### U ACSIND, UMICRO #### [facility] [address] [address] [address] Nayeli Moore MONO # 0.5 103/ul Normal 0.3-0.8 [facility] Comment on above: Performed By: #### U ACSIND, UMICRO #### [facility] [address] [address] [address] Nayeli Moore Monocytes/100 WBC (Bld) 4.1 % Normal 1.7-12.0 [facility] Comment on above: Performed By: #### U ACSJUANCARLOS, UMICRO #### [facility] [address] [address] [address] Nayeli Moore NEUT # 9.2 103/ul Critically high 1.4-6.5 [facility] Comment on above: Performed By: #### U ACSJUANCARLOS, UMICRO #### [facility] [address] [place] [address] Dr. Nayeli Moore Neutrophils/100 WBC (Bld) 80.7 % Critically high 43.0-75.0 [facility] Comment on above: Performed By: #### U ACSIND, UMICRO #### [facility] [address] [address] [address] Nayeli Moore Platelet mean volume (Bld) [Entitic vol] 9.8 fL Normal 9.5-13.5 [facility] Comment on above: Performed By: #### U ACSIND, UMICRO #### [facility] [address] [address] [address] Nayeli Moore PLT 260 103/ul Normal 150-450 [facility] Comment on above: Performed By: #### U ACSJUANCARLOS UMICRO #### [facility] [address] [address] [address] Nayeli Moore RBC 4.26 106/ul Normal 4.20-5.40 [facility] Comment on above: Performed By: #### U ACSJUANCARLOS UMICRO #### [facility] [address] [address] [address] Nayeli Moore WBC 11.3 103/ul Critically high 4.0-11.0 [facility] Comment on above: Performed By: #### U ACSUJANCARLOS, UMICRO #### [facility] [address] [address] [address] Nayeli Moore CULTURE URINEon 12-07-2021 CULTURE URINE Culture Observations : HANS TO FOLLOW. Isolate 1 Escherichia coli >100,000 cfu/mL of Normal [facility] Comment on above: Performed By: #### U RICHARD MANERO #### [facility] [address] [place] [address] Dr. Nayeli Moore GLYCOHEMOGLOBIN A1Con 2021 ADA RECOMMENDATION SEE BELOW Normal [facility] Comment on above: Result Comment: ADA RECOMMENDED LIMIT 4.0 - 6.0 ADA THERAPEUTIC TARGET < 7.0 ACTION SUGGESTED > 7.0 Performed By: #### V AGINT #### [facility] [address] [place] [address] Dr. Nayeli Moore Glucose [Mass/Vol] 103 mg/dL Normal [facility] Comment on above: Performed By: #### V AGINT #### [facility] [address] [place] [address] Dr. Nayeli Moore HbA1c (Bld) [Mass fraction] 5.2 % Normal 4.5-6.2 [facility] Comment on above: Performed By: #### V AGINT #### [facility] [address] [place] [address] Dr. Nayeli Moore ROSARIO BOX TEST PT SEND OUTo n 12-07-2021 SENT TO REF LAB 12/07/2021 Normal [facility] Comment on above: Performed By: #### H BSANS #### [facility] [address] [place] [address] Dr. Nayeli Moore TYPE AND SCREENon 12-07-2021 TYPE AND SCREEN Negative Normal [facility] Comment on above: Performed By: #### T NS #### [facility] [address] [place] [address] Dr. Nayeli Moore US PREG TVon 10-31-2021 US PREG TV EXAMINATION: US PREG TV HISTORY: Missed period COMPARISON: 07/28/2019 FINDINGS: Transvaginal images Padgett intrauterine gestation Gestational sac: 3.06 cm, 8 weeks 0 days CRL: 1.97 cm, 8 weeks 4 days Yolk sac: 0.32 cm Heart rate: 176 bpm Cervix: Closed, 3.8 cm The uterus is normal in appearance The ovaries are normal in appearance. The right measures 3.2 x 1.3 x 3.3 cm per the left measures 3.1 x 1.4 x 1.8 cm Clinical age: 8 weeks 1 day Clinical GAEL: 06/11/2022 Ultrasound age: 8 weeks 4 days Ultrasound GAEL: 06/08/2022 IMPRESSION: Viable padgett intrauterine gestation measuring 8 weeks 4 days Electronically authenticated by: MARKIE LANTIGUA Date: 2021-10-31 09:59 Normal [facility] CBC AUTO DIFFon 10-25-2021 BASO # 0.0 103/ul Normal 0.0-0.1 [facility] Comment on above: Performed By: #### V AGINT #### [facility] [address] [place] [address] Dr. Nayeli Moore Basophils/100 WBC (Bld) 0.4 % Normal 0.2-2.0 [facility] Comment on above: Performed By: #### V AGINT #### [facility] [address] [place] [address] Dr. Nayeli Moore EO # 0.2 103/ul Normal 0.0-0.7 [facility] Comment on above: Performed By: #### V AGINT #### [facility] [address] [place] [address] Dr. Nayeli Moore Eosinophils/100 WBC (Bld) 1.6 % Normal 0.9-7.0 [facility] Comment on above: Performed By: #### V AGINT #### [facility] [address] [place] [address] Dr. Nayeli Moore Erythrocyte distribution width (RBC) [Ratio] 11.9 % Normal 11.0-15.0 [facility] Comment on above: Performed By: #### V AGINT #### [facility] [address] [place] [address] Dr. Nayeli Moore Hematocrit (Bld) [Volume fraction] 35.3 % Critically low 36.0-48.0 [facility] Comment on above: Performed By: #### V AGINT #### [facility] [address] [place] [address] Dr. Nayeli Moore Hemoglobin (Bld) [Mass/Vol] 12.1 g/dL Normal 12.0-16.0 [facility] Comment on above: Performed By: #### V AGINT #### [facility] [address] [place] [address] Dr. Nayeli Moore IG # 0.03 10e3/ul Normal 0.00-0.03 [facility] Comment on above: Performed By: #### V AGINT #### [facility] [address] [place] [address] Dr. Nayeli Moore IG % 0.3 % Normal 0.0-0.5 [facility] Comment on above: Performed By: #### V AGINT #### [facility] [address] [place] [address] Dr. Nayeli Moore LYMPH # 1.9 103/ul Normal 1.2-3.8 [facility] Comment on above: Performed By: #### V AGINT #### [facility] [address] [place] [address] Dr. Nayeli Moore Lymphocytes/100 WBC (Bld) 20.1 % Critically low 20.5-60.0 [facility] Comment on above: Performed By: #### V AGINT #### [facility] [address] [place] [address] Dr. Nayeli Moore MANUAL DIFF REQ NO Normal [facility] Comment on above: Performed By: #### V AGINT #### [facility] [address] [place] [address] Dr. Nayeli Moore MCH (RBC) [Entitic mass] 30.9 pg Normal 26.7-34.0 [facility] Comment on above: Performed By: #### V AGINT #### [facility] [address] [place] [address] Dr. Nayeli Moore MCHC (RBC) [Mass/Vol] 34.3 g/dL Normal 29.9-35.2 [facility] Comment on above: Performed By: #### V AGINT #### [facility] [address] [place] [address] Dr. Nayeli Moore MCV (RBC) [Entitic vol] 90.1 fL Normal 81.0-99.0 [facility] Comment on above: Performed By: #### V AGINT #### [facility] [address] [place] [address] Dr. Nayeli Moore MONO # 0.6 103/ul Normal 0.3-0.8 [facility] Comment on above: Performed By: #### V AGINT #### [facility] [address] [place] [address] Dr. Nayeli Moore Monocytes/100 WBC (Bld) 5.9 % Normal 1.7-12.0 [facility] Comment on above: Performed By: #### V AGINT #### [facility] [address] [place] [address] Dr. Nayeli Moore NEUT # 6.7 103/ul Critically high 1.4-6.5 [facility] Comment on above: Performed By: #### V AGINT #### [facility] [address] [place] [address] Dr. Nayeli Moore Neutrophils/100 WBC (Bld) 71.7 % Normal 43.0-75.0 [facility] Comment on above: Performed By: #### V AGINT #### [facility] [address] [place] [address] Dr. Nayeli Moore Platelet mean volume (Bld) [Entitic vol] 9.7 fL Normal 9.5-13.5 [facility] Comment on above: Performed By: #### V AGINT #### [facility] [address] [place] [address] Dr. Nayeli Moore PLT 265 103/ul Normal 150-450 [facility] Comment on above: Performed By: #### V AGINT #### [facility] [address] [place] [address] Dr. Nayeli Moore RBC 3.92 106/ul Critically low 4.20-5.40 [facility] [facility] Comment on above: Performed By: #### V AGINT #### [facility] [address] [place] [address] Dr. Nayeli Moore WBC 9.3 103/ul Normal 4.0-11.0 [facility] Comment on above: Performed By: #### V AGINT #### [facility] [address] [place] [address] Dr. Nayeli Moore LIVER PROFILEon 10-25-2021 Albumin [Mass/Vol] 4.1 g/dL Normal 3.4-5.0 [facility] Comment on above: Performed By: #### V AGINT #### [facility] [address] [place] [address] Dr. Nayeli Moore Albumin/Globulin [Mass ratio] 1.1 {ratio} Normal [facility] Comment on above: Performed By: #### V AGINT #### [facility] [address] [place] [address] Dr. Nayeli Moore ALP [Catalytic activity/Vol] 51 U/L Normal 46-116 [facility] Comment on above: Performed By: #### V AGINT #### [facility] [address] [place] [address] Dr. Nayeli Moore ALT [Catalytic activity/Vol] 24 U/L Normal 14-59 [facility] Comment on above: Performed By: #### V AGINT #### [facility] [address] [place] [address] Dr. Nayeli Moore AST [Catalytic activity/Vol] 9 U/L Critically low 15-37 [facility] Comment on above: Performed By: #### V AGINT #### [facility] [address] [address] [address] Nayeli Moore BILI, CONJUGATED 0.1 mg/dL Normal 0.0-0.2 [facility] Comment on above: Performed By: #### V AGINT #### [facility] [address] [address] [address] Nayeli Moore Bilirubin [Mass/Vol] 0.3 mg/dL Normal 0.2-1.0 [facility] Comment on above: Performed By: #### V AGINT #### [facility] [address] [address] [address] Nayeli Moore Globulin (S) [Mass/Vol] 3.6 g/dL Normal [facility] Comment on above: Performed By: #### V AGINT #### [facility] [address] [address] [address] Nayeli Moore Protein [Mass/Vol] 7.7 g/dL Normal 6.4-8.2 [facility] Comment on above: Performed By: #### V AGINT #### [facility] [address] [address] [address] Nayeli Moore CoV2 [facility] [place] 05-12-2020 Date of onset [id number] [facility] Comment on above: Performed By: #### C D:[id number] #### [place] [address] Employed in healthcare? Unknown Normal [facility] Comment on above: Performed By: #### C [id number] #### [address] [address] Group care resident? Unknown Normal [facility] Comment on above: Performed By: #### C D:[id number] #### [address] [address] In ICU? Unknown Normal [facility] Comment on above: Performed By: #### C D:[id number] #### [id number] status? Unknown Normal [facility] Comment on above: Performed By: #### C [id number] #### [facility] [address] [place] [address] SARS-CoV-2 (COVID-19) RNA MING+probe Ql (Unsp spec) Normal Negative [facility] Comment on above: Result Comment: * Ne gative (Non-Reactive) * Negative results from patients with symptom onset outside of one to six days should be treated as presumptive. A false-negative test result may occur if the level of viral antigen in a sample is below the detection limit of the test or if the sample was collected or transported improperly; therefore, a negative test result does not eliminate the possibility of SARS-CoV-2 infection. Negative results should not be used as the sole basis for treatment or patient management decisions, including infection control decisions. Negative results should be considered in the context of a patient?s recent exposures, history and the presence of clinical signs and symptoms consistent with COVID-19. Negative ADDITIONAL INFORMATION: Testing performed on the [employer] using the [employer] SARS-CoV-2 Antigen test. Results are for the identification of SARS-CoV-2 nucleocapsid antigen. The performance of this test has not been evaluated for use in patients without signs and symptoms of respiratory infection and performance may differ in asymptomatic individuals. The [employer] SARS-CoV-2 Antigen test has met the requirements for a diagnostic test cited in Section IV, Policy C in the following FDA Guidance: Policy for Diagnostic Tests for Coronavirus Disease-2019 during the Public Health Emergency Immediately in Effect Guidance for Clinical Laboratories, Commercial Manufacturers, and Food and Drug Administration Staff ? Document issued on the web on October 03, 2019. The [employer] SARS-CoV-2 Antigen test has been validated but FDA?s independent review of the labeling and validation is pending. While the FDA review is still pending, testing is permitted at [facility] Laboratory as a certified lab to perform high complexity tests under the Clinical Laboratory Improvement Amendments of 1988 (CLIA), 42 U.S.C. 263a. Performed By: #### C D:[id number] #### [id number] [place] [address] SARS-CoV-2 (COVID-19) RNA MING+probe Ql (Unsp spec) Unknown Normal [facility] Comment on above: Performed By: #### C D:[id number] #### [facility] [address] [place] [address] Symptomatic as defined by CDC? Yes Normal [facility] Comment on above: Performed By: #### C D:[id number] #### [facility] [address] [place] [address] XR Knee 1 or 2 Views Lefton 03-29-2020 XR Knee 1 or 2 Views Left EXAM: XR Knee 1 or 2 Views Left HISTORY: pain in left knee COMPARISON: None. FINDINGS: 2 views of the left knee were obtained. No acute fracture or dislocation. Joint space is relatively maintained. Articular surfaces are smooth in contour. No significant joint effusion. IMPRESSION: Radiographic appearance of the left knee is within normal limits. Final Dictated by: Niko Corey MD Dictated DT/TM: 03/29/2020 5:23 pm Signed by: Niko Corey MD Signed (Electronic Signature): 03/29/2020 5:25 pm (If Report Is Signed, Electronically Signed in Other Vendor System) Normal [facility] Basic Metabolic Panelon 03 GFR/1.73 sq M predicted among non-blacks MDRD (S/P/Bld) [Vol rate/Area] 131.02 Normal [facility] Comment on above: Result Comment: eGFR Interpretation: Normal or minimal kidney damage with normal GFR: 90+ Mild decrease in GFR: 60-89 Moderate decrease in GFR: 30-59 Severe decrease in GFR: 15-29 Kidney failure: <15 Performed By: #### B MP #### [facility] [address] [place] [address] GFR/1.73 sq M predicted among non-blacks MDRD (S/P/Bld) [Vol rate/Area] 161.96 Normal [facility] Comment on above: Result Comment: eGFR Interpretation: Normal or minimal kidney damage with normal GFR: 90+ Mild decrease in GFR: 60-89 Moderate decrease in GFR: 30-59 Severe decrease in GFR: 15-29 Kidney failure: <15 Performed By: #### B MP #### [facility] [address] [place] [address] GFR/1.73 sq M predicted among non-blacks MDRD (S/P/Bld) [Vol rate/Area] 140.72 Normal [facility] Comment on above: Performed By: #### B MP #### [facility] [address] [place] [address] GFR/1.73 sq M predicted among non-blacks MDRD (S/P/Bld) [Vol rate/Area] 151.46 Normal [facility] Comment on above: Performed By: #### B MP #### [address] [place] [address] GFR/1.73 sq M predicted among non-blacks MDRD (S/P/Bld) [Vol rate/Area] 187.23 [facility] Comment on above: Performed By: #### B MP #### [address] [place] [address] GFR/1.73 sq M predicted among non-blacks MDRD (S/P/Bld) [Vol rate/Area] 120.5 Normal [facility] Comment on above: Result Comment: eGFR Interpretation: Normal or minimal kidney damage with normal GFR: 90+ Mild decrease in GFR: 60-89 Moderate decrease in GFR: 30-59 Severe decrease in GFR: 15-29 Kidney failure: <15 Performed By: #### B MP #### [facility] [address] [place] [address] GFR/1.73 sq M predicted among non-blacks MDRD (S/P/Bld) [Vol rate/Area] 122.07 Normal [facility] Comment on above: Result Comment: eGFR Interpretation: Normal or minimal kidney damage with normal GFR: 90+ Mild decrease in GFR: 60-89 Moderate decrease in GFR: 30-59 Severe decrease in GFR: 15-29 Kidney failure: <15 Performed By: #### B MP #### [facility] [address] [place] [address] Age - Reported 24 year(s) Normal [facility] Comment on above: Performed By: #### B MP #### [facility] [address] [place] [address] GFR/1.73 sq M predicted among non-blacks MDRD (S/P/Bld) [Vol rate/Area] 138.95 Normal [facility] Comment on above: Performed By: #### B MP #### [facility] [address] [place] [address] Age at specimen collection = Normal [facility] Comment on above: Performed By: #### B MP #### [address] [place] [address] Performed By: #### C BC Auto Diff #### [address] [place] [address] Calcium [Mass/Vol] 9.6 mg/dL Normal 8.4 - 10.2 [facility] Comment on above: Performed By: #### B MP #### [facility] [address] [place] [address] Chloride [Moles/Vol] 101 mmol/L Normal 98 - 107 [facility] Comment on above: Performed By: #### B MP #### [facility] [address] [place] [address] CO2 [Moles/Vol] 27 mmol/L Normal 22 - 32 [facility] Comment on above: Performed By: #### B MP #### [facility] [address] [place] [address] Creatinine [Mass/Vol] 0.69 mg/dL Normal 0.52 - 1.04 [facility] Comment on above: Performed By: #### B MP #### [facility] [address] [place] [address] Glucose [Mass/Vol] 62 mg/dL Low 65 - 100 [facility] Comment on above: Performed By: #### B MP #### [address] [place] [address] Potassium [Moles/Vol] 3.9 mmol/L Normal 3.6 - 5.0 [facility] Comment on above: Performed By: #### B MP #### [address] [place] [address] Sodium [Moles/Vol] 139 mmol/L Normal 135 - 145 [facility] Comment on above: Performed By: #### B MP #### [address] [place] [address] Urea nitrogen [Mass/Vol] 14 mg/dL Normal 7 - 17 [facility] Comment on above: Performed By: #### B MP #### [address] [place] [address] CBC W Auto Differentialon Abs Neut # 4.0 10 X 3/mm Normal 1.8 - 7.7 [facility] Comment on above: Performed By: #### C BC Auto Diff #### [address] [place] [address] Basophils/100 WBC (Bld) 1 % Normal 0 - 1 [facility] Comment on above: Performed By: #### C BC Auto Diff #### [address] [place] [address] Eosinophils (Bld) [#/Vol] 0.2 10 X 3/mm Normal 0.0 - 0.5 [facility] Comment on above: Performed By: #### C BC Auto Diff #### [facility] [address] [place] [address] Eosinophils/100 WBC (Bld) 3 % Normal 0 - 5 [facility] Comment on above: Performed By: #### C BC Auto Diff #### [address] [place] [address] Erythrocyte distribution width (RBC) [Ratio] 11.8 % Normal 11.5 - 14.5 [facility] Comment on above: Performed By: #### C BC Auto Diff #### [address] [place] [address] Hematocrit (Bld) [Volume fraction] 40.2 % Normal 36.0 - 47.0 [facility] Comment on above: Performed By: #### C BC Auto Diff #### [address] [place] [address] Hemoglobin (Bld) [Mass/Vol] 13.1 g/dL Normal 12.0 - 16.0 [facility] Comment on above: Performed By: #### C BC Auto Diff #### [address] [place] [address] Lymphocytes (Bld) [#/Vol] 1.6 10 X 3/mm Normal 1.0 - 4.0 [facility] Comment on above: Performed By: #### C BC Auto Diff #### [address] [place] [address] Lymphocytes/100 WBC (Bld) 26 % Normal 20 - 40 [facility] Comment on above: Performed By: #### C BC Auto Diff #### [address] [place] [address] MCH (RBC) [Entitic mass] 29.8 pg Normal 27.0 - 35.0 [facility] Comment on above: Performed By: #### C BC Auto Diff #### [address] [place] [address] MCHC (RBC) [Mass/Vol] 32.6 g/dL Normal 32.0 - 36.0 [facility] Comment on above: Performed By: #### C BC Auto Diff #### [address] [place] [address] MCV (RBC) [Entitic vol] 91.4 fL Normal 80.0 - 100.0 [facility] Comment on above: Performed By: #### C BC Auto Diff #### [address] [place] [address] Monocytes/100 WBC (Bld) 7 % Normal 1 - 15 [facility] Comment on above: Performed By: #### C BC Auto Diff #### [address] [place] [address] Neutrophils/100 WBC (Bld) 64 % Normal 50 - 70 [facility] Comment on above: Performed By: #### C BC Auto Diff #### [address] [place] [address] Platelet mean volume (Bld) [Entitic vol] 9.8 fL Normal 9.4 - 12.3 [facility] Comment on above: Performed By: #### C BC Auto Diff #### [address] [place] [address] Platelets (Bld) [#/Vol] 264 uLx10 Normal 150 - 450 [facility] Comment on above: Performed By: #### C BC Auto Diff #### [address] [place] [address] RBC (Bld) [#/Vol] 4.40 10 X 6/mm Normal 4.20 - 5.40 [facility] Comment on above: Performed By: #### C BC Auto Diff #### [facility] [address] [place], [place] [id number] WBC (Bld) [#/Vol] 6.2 10 X 3/mm Normal 3.7 - 11.0 [facility] Comment on above: Performed By: #### C BC Auto Diff #### [facility] [address] [place] [address] US TRANSVAGINAL NON OBon US TRANSVAGINAL NON OB EXAM: US TRANSVAGINAL NON OB CLINICAL HISTORY: 24 years old Female presenting with pelvic pain, amenorrhea. COMPARISON: CT scan 01/08/2016 TECHNIQUE: Transvaginal real-time grayscale and color Doppler imaging with pulsed duplex sonography was performed. FINDINGS: UTERUS: Uterus is normal in size and echotexture measuring 8 x 4.2 x 5.6 cm ENDOMETRIUM: Endometrium is homogeneous and normal in size, measuring 0.9 cm OVARIES: Bilateral ovaries are normal in size and echogenicity. Right ovary measures 2.4 x 1.5 x 3.2 cm. Left ovary measures 3.2 x 1.9 x 3.1 cm. A dominant left ovarian follicle versus regressing cyst with possible internal daughter cyst and/or debris. Ovaries demonstrate color Doppler flow and appropriate spectral waveforms. MISCELLANEOUS: Trace fluid in the pelvis. IMPRESSION: 1. Probable left ovarian dominant follicle or recently ruptured cyst. 2. Otherwise unremarkable pelvic ultrasound. Report electronically signed by: Dr. Colby Wyatt Normal [facility] CT ABDOMEN PELVIS W IV CONTR Daniel 07-06-2019 CT ABDOMEN PELVIS W IV CONTRAST EXAMINATION: CT OF THE ABDOMEN AND PELVIS WITH CONTRAST 07/05/2019 5:06 pm TECHNIQUE: CT of the abdomen and pelvis was performed with the administration of intravenous contrast. Multiplanar reformatted images are provided for review. Dose modulation, iterative reconstruction, and/or weight based adjustment of the mA/kV was utilized to reduce the radiation dose to as low as reasonably achievable. COMPARISON: None. HISTORY: ORDERING SYSTEM PROVIDED HISTORY: RLQ pain and swelling TECHNOLOGIST PROVIDED HISTORY: RLQ pain and swelling 23-year-old female with right lower quadrant abdominal pain and swelling FINDINGS: Lower Chest: Respiratory motion at the visualized lung bases. No free intra-abdominal air. Organs: Liver, gallbladder, spleen, pancreas, adrenal glands, and kidneys grossly unremarkable in appearance. No obstructing renal calculus, hydronephrosis or hydroureter. GI/Bowel: Normal gas-filled appendix is seen on axial images 129-127, series. No significant dilation of small bowel loops to suggest small bowel obstruction. Mild stool burden. Prominence of the wall of the transverse colon likely related to incomplete distension. Pelvis: Urinary bladder is collapsed. No inguinal or pelvic sidewall lymphadenopathy. Small amount of free fluid in the pelvis. Uterus and adnexa grossly unremarkable for the patient's age. Peritoneum/Retroperit oneum: Abdominal aorta normal in appearance and caliber. No retroperitoneal lymphadenopathy. Psoas muscles normal in size and symmetric in appearance. Bones/Soft Tissues: Small midline fat containing periumbilical hernia. No acute osseous abnormality. IMPRESSION: 1. Small amount of free fluid in the pelvis which could be related to ruptured hemorrhagic cyst. Further evaluation with pelvic ultrasound can be performed if clinically indicated. 2. Normal gas-filled appendix. 3. Prominence of the transverse colonic wall likely related to incomplete distension. 4. No obstructing calculus or hydronephrosis. 5. Small midline fat containing periumbilical hernia. Interpreted by: Donis Bailey MD Signed by: Donis Bailey MD 07/05/19 Final result Normal [facility] Basic Metab w/rfx MGon 07-05 (cont.) Normal [facility] Comment on above: Result Comment: Aver age GFR for 20-29 years old: 116 mL/min/1.73sq m Chronic Kidney Disease: <60 mL/min/1.73sq m Kidney failure: <15 mL/min/1.73sq m eGFR calculated using average adult body mass. Additional eGFR calculator available at: http://www.Ui Link.Indigoz/multiple_crcl_2012.htm Performed By: #### C DP, BMPX #### [facility] [address] [place] [address] Public Administration Teacher: Kaiser Banda MD Anion gap [Moles/Vol] 13 mmol/L Normal 9-17 [facility] Comment on above: Performed By: #### C DP, BMPX #### [facility] [address] [place] [address] Public Administration Teacher: Kaiser Banda MD BUN/CRE Ratio 21 High 9-20 [facility] Comment on above: Performed By: #### C DP, BMPX #### [facility] [address] [place] [address] Public Administration Teacher: Kaiser Banda MD Calcium [Mass/Vol] 9.6 mg/dL Normal 8.6-10.4 [facility] Comment on above: Performed By: #### C DP, BMPX #### [facility] [address] [place], [place] [id number] Public Administration Teacher: Kaiser Banda MD Chloride [Moles/Vol] 99 mmol/L Normal 98-107 [facility] Comment on above: Performed By: #### C DP, BMPX #### [facility] [address] [place], [place] [id number] Public Administration Teacher: Kaiser Banda MD CO2 [Moles/Vol] 25 mmol/L Normal 20-31 [facility] Comment on above: Performed By: #### C DP, BMPX #### [facility] [address] [place], [place] [id number] Public Administration Teacher: Kaiser Banda MD Creatinine [Mass/Vol] 0.58 mg/dL Normal 0.50-0.90 [facility] Comment on above: Performed By: #### C DP, BMPX #### [facility] [address] [place] [address] Public Administration Teacher: Kaiser Banda MD GFR, Amer >60 Normal >60 [facility] Comment on above: Performed By: #### C DP, BMPX #### [facility] [address] [place] [address] Public Administration Teacher: Kaiser Banda MD GFR,non Amer >60 Normal >60 [facility] Comment on above: Performed By: #### C DP, BMPX #### [facility] [address] [place] [address] Public Administration Teacher: Kaiser Banda MD Glucose [Mass/Vol] 92 mg/dL Normal 70-99 [facility] Comment on above: Performed By: #### C DP, BMPX #### [facility] [address] [place], [place] [id number] Public Administration Teacher: Kaiser Banda MD Potassium [Moles/Vol] 3.7 mmol/L Normal 3.7-5.3 [facility] Comment on above: Performed By: #### C DP, BMPX #### [facility] [address] [place] [address] Public Administration Teacher: Kaiser Banda MD Sodium [Moles/Vol] 137 mmol/L Normal 135-144 [facility] Comment on above: Performed By: #### C DP, BMPX #### [facility] [address] [place], [place] [id number] Public Administration Teacher: Kaiser Banda MD Staging: Normal [facility] Comment on above: Result Comment: Stag e 1: Some kidney damage normal GFR Stage 2: Mild kidney damage GFR 60-89 Stage 3: Moderate kidney damage GFR 30-59 Stage 4: Severe kidney damage GFR 15-29 Stage 5: Severe kidney damage GFR <15 ESRD - chronic treatment by dialysis or transplant Performed By: #### C DP, BMPX #### [facility] [address] [place], [place] [id number] Public Administration Teacher: Kaiser Banda MD Urea nitrogen [Mass/Vol] 12 mg/dL Normal 6-20 [facility] Comment on above: Performed By: #### C DP, BMPX #### [facility] [address] [place] [address] Public Administration Teacher: Kaiser Banda MD Basic Metabolic Panel w/ Ref joaquin to MGon 07-05-2019 Anion gap [Moles/Vol] 13 mmol/L 9 - 17 mmol/L [employer] Phone: Bun/Cre Ratio 21 High [employer] [facility] [employer] Work Phone: Calcium [Mass/Vol] 9.6 mg/dL 8.6 - 10. 4 mg/dL [facility] Phone: Chloride [Moles/Vol] 99 mmol/L 98 - 10 7 mmol/L [facility] Phone: CO2 [Moles/Vol] 25 mmol/L 20 - 31 mmol/L [employer] Phone: Creatinine [Mass/Vol] 0.58 mg/dL 0.5 - 0.9 mg/dL [facility] Phone: GFR >60 >60 mL/min [employer] Phone: GFR Non- >60 >60 mL/min [employer] Phone: Glucose [Mass/Vol] 92 mg/dL 70 - 99 mg/dL [facility] [employer] Work Phone: Interpretation and review of laboratory results Abnormal [facility] Phone: Potassium [Moles/Vol] 3.7 mmol/L 3.7 - 5.3 mmol/L [facility] Phone: Sodium [Moles/Vol] 137 mmol/L 135 - 144 mmol/L [facility] Phone: Urea nitrogen [Mass/Vol] 12 mg/dL 6 - 20 mg/dL [employer] Phone: CBC Auto Differentialon 06-25 Basophils (Bld) [#/Vol] 10*3/uL [employer] Phone: Differential Type NOT REPORTED [facility] Phone: Immature granulocytes (Bld) [#/Vol] 10*3/uL [facility] Work Phone: Platelets (Bld) [#/Vol] NOT REPORTED [facility] Work Phone: RBC morphology finding Nom (Bld) NOT REPORTED [facility] Work Phone: Segmented neutrophils/100 WBC (Bld) 61 % 36 - 65 % [facility] Work Phone: Segs Absolute 4.94 [facility] Work Phone: WBC (Bld) [#/Vol] 0.0 10*3/uL 0.0 per 10 0 WBC [facility] Work Phone: WBC Morphology NOT REPORTED [facility] Work Phone: CBC with Diffon 07-05-2019 Abs. Basophil <0.03 Normal 0.00-0.20 [facility] Comment on above: Performed By: #### C DP, BMPX #### [facility] [address] [place] [address] Public Administration Teacher: Kaiser Banda MD Abs.Imm.Granulocyte <0.03 Normal 0.00-0.30 [facility] Comment on above: Performed By: #### C DP, BMPX #### [facility] [address] [place] [address] Public Administration Teacher: Kaiser Banda MD Abs.Neutrophil (Seg) 4.94 k/uL Normal 1.50-8.10 [facility] Comment on above: Performed By: #### C DP, BMPX #### [facility] [address] [place] [address] Public Administration Teacher: Kaiser Banda MD Neutrophil (Seg) 61 % Normal 36-65 [facility] Comment on above: Performed By: #### C DP, BMPX #### [facility] [address] [place] [address] Public Administration Teacher: Kaiser Banda MD NRBC Automated 0.0 per 100 WBC Normal 0.0 [facility] Comment on above: Performed By: #### C DP, BMPX #### [facility] [address] [place] [address] Public Administration Teacher: Kaiser Banda MD Auto Diff Performed NOT REPORTED Normal [facility] Comment on above: Performed By: #### C DP, BMPX #### [facility] [address] [place], [facility]83 Public Administration Teacher: Kaiser Banda MD Platelets (Bld) [#/Vol] NOT REPORTED Normal [facility] Comment on above: Performed By: #### C DP, BMPX #### [address] [place], [facility]83 Public Administration Teacher: Kaiser Banda MD RBC morphology finding Nom (Bld) NOT REPORTED Normal [facility] Comment on above: Performed By: #### C DP, BMPX #### [address] [place], [facility]83 Public Administration Teacher: Kaiser Banda MD WBC Morphology NOT REPORTED Normal [facility] Comment on above: Performed By: #### C DP, BMPX #### [address] [place], [place] [id number] Public Administration Teacher: Kaiser Banda MD Basophils/100 WBC (Bld) 0 % Normal 0-2 [facility] Work Phone: Comment on above: Performed By: #### C DP, BMPX #### [facility] [address] [place] [address] Public Administration Teacher: Kaiser Banda MD Eosinophils (Bld) [#/Vol] 0.18 10*3/uL Normal 0.00-0.44 [facility] Work Phone: Comment on above: Performed By: #### C DP, BMPX #### [address] [place], [place] [id number] Public Administration Teacher: Kaiser Banda MD Eosinophils/100 WBC (Bld) 2 % Normal 1-4 [facility]: Comment on above: Performed By: #### C DP, BMPX #### [address] [place], [place] [id number] Public Administration Teacher: Kaiser Banda MD Erythrocyte distribution width (RBC) [Ratio] 11.9 % Normal 11.8-14.4 [facility] [employer] Work Phone: Comment on above: Performed By: #### C DP, BMPX #### [address] [place] [address] Public Administration Teacher: Kaiser Banda MD Hematocrit (Bld) [Volume fraction] 42.4 % Normal 36.3-47.1 [facility] [employer] Work Phone: Comment on above: Performed By: #### C DP, BMPX #### [address] [place] [address] Public Administration Teacher: Kaiser Banda MD Hemoglobin (Bld) [Mass/Vol] 13.8 g/dL Normal 11.9-15.1 [facility] Phone: Comment on above: Performed By: #### C DP, BMPX #### [address] [place], [place] [id number] Public Administration Teacher: Kaiser Banda MD Immature granulocytes (Bld) [#/Vol] 0 % Normal 0 [facility] [employer] Phone: Comment on above: Performed By: #### C DP, BMPX #### [address] [place] [address] Public Administration Teacher: Kaiser Banda MD Lymphocytes (Bld) [#/Vol] 2.48 10*3/uL Normal 1.10-3.70 [facility] Work Phone: Comment on above: Performed By: #### C DP, BMPX #### [facility] [address] [place] [address] Public Administration Teacher: Kaiser Banda MD Lymphocytes/100 WBC (Bld) 30 % Normal 24-43 [facility] [employer] Work Phone: Comment on above: Performed By: #### C DP, BMPX #### [address] [place] [address] Public Administration Teacher: Kaiser Banda MD MCH (RBC) [Entitic mass] 29.7 pg Normal 25.2-33.5 [facility] [employer] Phone: Comment on above: Performed By: #### C DP, BMPX #### [address] [place], [place] [address] Public Administration Teacher: Kaiser Banda MD MCHC (RBC) [Mass/Vol] 32.5 g/dL Normal 28.4-34.8 [facility] [employer] Phone: Comment on above: Performed By: #### C DP, BMPX #### [address] [place] [address] Public Administration Teacher: Kaiser Banda MD MCV (RBC) [Entitic vol] 91.2 fL Normal 82.6-102.9 [facility] [employer] Work Phone: Comment on above: Performed By: #### C DP, BMPX #### [address] [place] [address] Public Administration Teacher: Kaiser Banda MD Monocytes (Bld) [#/Vol] 0.59 10*3/uL Normal 0.10-1.20 [facility] [employer] Phone: Comment on above: Performed By: #### C DP, BMPX #### [address] [place], [place] [id number] Public Administration Teacher: Kaiser Banda MD Monocytes/100 WBC (Bld) 7 % Normal 3-12 [facility] [employer] Phone: Comment on above: Performed By: #### C DP, BMPX #### [address] [place], [place] [id number] Public Administration Teacher: Kaiser Banda MD Platelet mean volume (Bld) [Entitic vol] 9.8 fL Normal 8.1-13.5 [facility] [employer] Work Phone: Comment on above: Performed By: #### C DP, BMPX #### [address] [place], [place] [id number] Public Administration Teacher: Kaiser Banda MD Platelets (Bld) [#/Vol] 291 10*3/uL Normal 138-453 [employer] Work Phone: Comment on above: Performed By: #### C DP, BMPX #### [address] [place], [place] [id number] Public Administration Teacher: Kaiser Banda MD RBC (Bld) [#/Vol] 4.65 10*6/uL Normal 3.95-5.11 [facility] [employer] Phone: Comment on above: Performed By: #### C DP, BMPX #### [address] [place], [place] [id number] Public Administration Teacher: Kaiser Banda MD WBC (Bld) [#/Vol] 8.2 10*3/uL Normal 3.5-11.3 [employer] Phone: Comment on above: Performed By: #### C DP, BMPX #### [address] [place], [place] [id number] Public Administration Teacher: Kaiser Banda MD HCG, ,Urineon 07-05 Beta HCG ( test) Ql (U) Negative Normal NEG [facility] Comment on above: Result Comment: Spec imens with hCG levels near the threshold of the test (25 mIU/mL) may give a negative or indeterminate result. In such cases, another test should be performed with a new specimen in 48-72 hours. If early is suspected clinically in this setting, correlation with quantitative serum b-hCG level is suggested. [employer] has confirmed the use of plasma for this test. This has not been cleared or approved by the U.S. Food and Drug Administration. The FDA has determined that such clearance is not necessary. Performed By: #### U HCG, UA, UMICAO #### [facility] [address] [place] [address] Public Administration Teacher: Kaiser Banda MD Metabolic Panelon 07-05-2019 GFR/1.73 sq M predicted among non-blacks MDRD (S/P/Bld) [Vol rate/Area] [employer] Phone: Comment on above: Average GFR for 20-2 9 years old: 116 mL/min/1.73sq m Chronic Kidney Disease: <60 mL/min/1.73sq m Kidney failure: <15 mL/min/1.73sq m eGFR calculated using average adult body mass. Additional eGFR calculator available at: http://www.proteonomix/multiple_crcl_2012.htm Stage 1: Some kidney damage normal GFR Stage 2: Mild kidney damage GFR 60-89 Stage 3: Moderate kidney damage GFR 30-59 Stage 4: Severe kidney damage GFR 15-29 Stage 5: Severe kidney damage GFR <15 ESRD - chronic treatment by dialysis or transplant Microscopic Urinalysison Amorphous, UA NOT REPORTED None [facility] Work Phone: Bacteria, UA 1+ Abnormal None [employer] Work Phone: Casts UA NOT REPORTED /LPF [employer] Work Phone: Crystals UA NOT REPORTED None /HPF [employer] [facility] Work Phone: Epithelial Cells UA 0 TO 2 [employer] Phone: Interpretation and review of laboratory results Abnormal [employer] Phone: Mucus, UA 1+ Abnormal None [employer] Phone: Other Observations UA NOT REPORTED NOT REQ. [employer] Phone: RBC (U) [#/Vol] 2 TO [address] [employer] [facility] Work Phone: Renal Epithelial, Urine NOT REPORTED 0 /HPF [employer] Work Phone: Trichomonas, UA NOT REPORTED None [employer] [facility] Work Phone: WBC, UA 0 TO 2 [employer] Phone: Yeast, UA NOT REPORTED None [employer] Phone: - [employer] Phone: , Urineon 0 Beta HCG ( test) Ql (U) Negative NEGATIVE [employer] Phone: Comment on above: Specimens with hCG l evels near the threshold of the test (25 mIU/mL) may give a negative or indeterminate result. In such cases, another test should be performed with a new specimen in 48-72 hours. If early is suspected clinically in this setting, correlation with quantitative serum b-hCG level is suggested. [employer] has confirmed the use of plasma for this test. This has not been cleared or approved by the U.S. Food and Drug Administration. The FDA has determined that such clearance is not necessary. US NON OB TRANSVAGINALon US NON OB TRANSVAGINAL EXAMINATION: PELVIC ULTRASOUND 07/05/2019 TECHNIQUE: Transvaginal pelvic ultrasound was performed. Color Doppler evaluation was performed. COMPARISON: CT abdomen and pelvis July 05, 2019. HISTORY: ORDERING SYSTEM PROVIDED HISTORY: possible ruptured hemorrhagic cyst TECHNOLOGIST PROVIDED HISTORY: possible ruptured hemorrhagic cyst FINDINGS: Measurements: Uterus: 8.1 x 4.2 x 5.3 cm. Endometrial stripe: 5.9 mm. Right Ovary: 3.5 x 2.1 x 3.1 cm. Left Ovary: 4.4 x 1.9 x 3.1 cm. Ultrasound Findings: Uterus: Uterus demonstrates normal myometrial echotexture. Endometrial stripe: Endometrial stripe is within normal limits. Right Ovary: Complex right ovarian cystic lesion measures up to 2.3 cm. Blood flow is demonstrated to the right ovary. Left Ovary: Left ovary is within normal limits. Blood flow is demonstrated to the left ovary. Free Fluid: Small amount of free fluid. IMPRESSION: Complex right ovarian cyst measuring up to 2.3 cm. When compared with the concurrent CT of the abdomen and pelvis findings could be on the basis of a partially ruptured cyst. Recommend follow-up in 6-12 weeks. Interpreted by: Sylvain Helm MD Signed by: Sylvain Helm MD 07/05/19 Final result Normal [facility] right ovaria n cyst measuring up to 2.3 cm. When compared with the concurrent CT of the abdomen and pelvis findings could be on the basis of a partially ruptured cyst. Recommend follow-up in 6-12 weeks. [employer] Phone: Negro, pn Incoming Radiant Results From [employer] - 07/05/2019 6:37 PM EST EXAMINATION: PELVIC ULTRASOUND 07/05/2019 TECHNIQUE: Transvaginal pelvic ultrasound was performed. Color Doppler evaluation was performed. COMPARISON: CT abdomen and pelvis July 05, 2019. HISTORY: ORDERING SYSTEM PROVIDED HISTORY: possible ruptured hemorrhagic cyst TECHNOLOGIST PROVIDED HISTORY: possible ruptured hemorrhagic cyst FINDINGS: Measurements: Uterus: 8.1 x 4.2 x 5.3 cm. Endometrial stripe: 5.9 mm. Right Ovary: 3.5 x 2.1 x 3.1 cm. Left Ovary: 4.4 x 1.9 x 3.1 cm. Ultrasound Findings: Uterus: Uterus demonstrates normal myometrial echotexture. Endometrial stripe: Endometrial stripe is within normal limits. Right Ovary: Complex right ovarian cystic lesion measures up to 2.3 cm. Blood flow is demonstrated to the right ovary. Left Ovary: Left ovary is within normal limits. Blood flow is demonstrated to the left ovary. Free Fluid: Small amount of free fluid. IMPRESSION: Complex right ovarian cyst measuring up to 2.3 cm. When compared with the concurrent CT of the abdomen and pelvis findings could be on the basis of a partially ruptured cyst. Recommend follow-up in 6-12 weeks. [employer] Phone: EXAMINATION: PELVIC ULTRASOUND 07/05/2019 TECHNIQUE: Transvaginal pelvic ultrasound was performed. Color Doppler evaluation was performed. COMPARISON: CT abdomen and pelvis July 05, 2019. HISTORY: ORDERING SYSTEM PROVIDED HISTORY: possible ruptured hemorrhagic cyst TECHNOLOGIST PROVIDED HISTORY: possible ruptured hemorrhagic cyst FINDINGS: Measurements: Uterus: 8.1 x 4.2 x 5.3 cm. Endometrial stripe: 5.9 mm. Right Ovary: 3.5 x 2.1 x 3.1 cm. Left Ovary: 4.4 x 1.9 x 3.1 cm. Ultrasound Findings: Uterus: Uterus demonstrates normal myometrial echotexture. Endometrial stripe: Endometrial stripe is within normal limits. Right Ovary: Complex right ovarian cystic lesion measures up to 2.3 cm. Blood flow is demonstrated to the right ovary. Left Ovary: Left ovary is within normal limits. Blood flow is demonstrated to the left ovary. Free Fluid: Small amount of free fluid. [employer] Phone: Urinalysis, Routineon 2019 Acetoacetic Acid,Ur Negative Normal NEG [facility] Comment on above: Performed By: #### U HCG, UA, UMICAO #### [facility] [address] [place] [address] Public Administration Teacher: Kaiser Banda MD Bilirubin, SemiQt,Ur Negative Normal [facility] Comment on above: Performed By: #### U HCG, UA, UMICAO #### [facility] [address] [place] [address] Public Administration Teacher: Kaisre Banda MD Color (U) YELLOW Normal [facility] Comment on above: Performed By: #### U HCG, UA, UMICAO #### [facility] [address] [place] [address] Public Administration Teacher: Kaiser Banda MD Glucose Ql (U) Negative Normal NEG [facility] Comment on above: Performed By: #### U HCG, UA, UMICAO #### [facility] [address] [place] [id number] Public Administration Teacher: Kaiser Banda MD Hemoglobin, Ur TRACE Abnormal NEG [facility] Comment on above: Performed By: #### U HCG, UA, UMICAO #### [facility] [address] [place] [id number] Public Administration Teacher: Kaiser Banda MD Leukocyte esterase Test strip Ql (U) Negative Normal NEG [facility] Comment on above: Performed By: #### U HCG, UA, UMICAO #### [facility] [address] [place] [id number] Public Administration Teacher: Kaiser Banda MD Nitrite,Ur Negative Normal NEG [facility] Comment on above: Performed By: #### U HCG, UA, UMICAO #### [address] [place] [id number] Public Administration Teacher: Kaiser Banda MD pH (U) 7.5 [pH] Normal 5.0-9.0 [facility] Comment on above: Performed By: #### U HCG, UA, UMICAO #### [address] [place] [id number] Public Administration Teacher: Kaiser Banda MD Protein Ql (U) Negative Normal NEG [facility] Comment on above: Performed By: #### U HCG, UA, UMICAO #### [facility] [address] [place] [address] [place], [facility]83 Public Administration Teacher: Kaiser Banda MD Specific gravity (U) [Rel density] 1.015 Normal 1.010-1.020 [facility] Comment on above: Performed By: #### U HCG, UA, UMICAO #### [facility] [address] [place] [address] Public Administration Teacher: Kaiser Banda MD Turbidity CLEAR Normal CLEAR [facility] Comment on above: Performed By: #### U HCG, UA, UMICAO #### [facility] [address] [place] [address] Public Administration Teacher: Kaiser Banda MD Urobilinogen,Ur Normal Normal NORM [facility] Comment on above: Performed By: #### U HCG, UA, UMICAO #### [facility] [address] [place], [place] [address]83 Public Administration Teacher: Kaiser Banda MD Comment NOT REPORTED Normal [facility] Comment on above: Performed By: #### U HCG, UA, UMICAO #### [facility] [address] [place] [address] Public Administration Teacher: Kaiser Banda MD Urinalysis, reflex to micros copicon 07-05-2019 Bilirubin Urine Negative NEGATIVE [facility] Work Phone: Color, UA YELLOW YELLOW [facility] Work Phone: Glucose, Ur Negative NEGATIVE [facility] Work Phone: Interpretation and review of laboratory results Abnormal [facility] Work Phone: Ketones Ql (U) Negative NEGATIVE [facility] Work Phone: Leukocyte esterase Test strip Ql (U) Negative NEGATIVE [facility] Phone: Nitrite, Urine Negative NEGATIVE [facility] Work Phone: pH, UA 7.5 [facility] Work Phone: Protein (U) [Mass/Vol] Negative NEGATIVE [facility] Work Phone: Specific [place], UA 1.015 [facility] [employer] Work Phone: Turbidity UA CLEAR CLEAR [facility] Work Phone: Urinalysis Comments NOT REPORTED [facility] [employer] Work Phone: Urine Hgb TRACE Abnormal NEGATIVE [facility] Work Phone: Urobilinogen, Urine Normal Normal [facility] Work Phone: Urinalysis,Microon 0 ----- Normal [facility] Comment on above: Performed By: #### U HCG, UA, UMICAO #### [facility] [address] [place] [address] Public Administration Teacher: Kaiser Banda MD Bacteria LM.HPF (Urine sed) [#/Area] 1+ Abnormal [facility] Comment on above: Performed By: #### U HCG, UA, UMICAO #### [facility] [address] [place] [address] Public Administration Teacher: Kaiser Banda MD Epithelial cells LM.HPF (Urine sed) [#/Area] 0 TO 2 Normal 0-25 [facility] Comment on above: Performed By: #### U HCG, UA, UMICAO #### [facility] [address] [place] [address] Public Administration Teacher: Kaiser Banda MD Mucus Strands 1+ Abnormal [facility] Comment on above: Performed By: #### U HCG, UA, UMICAO #### [address] [place] [address] Public Administration Teacher: Kaiser Banda MD RBC (U) [#/Vol] 2 TO 5 Normal 0-2 [facility] Comment on above: Performed By: #### U HCG, UA, UMICAO #### [facility] [address] [place] [address] Public Administration Teacher: Kaiser Banda MD WBC (U) [#/Vol] 0 TO 2 Normal 0-5 [facility] Comment on above: Performed By: #### U HCG, UA, UMICAO #### [facility] [address] [place] [id number] Public Administration Teacher: Kaiser Banda MD Amorphous sediment LM Ql (Urine sed) NOT REPORTED Normal [facility] Comment on above: Performed By: #### U HCG, UA, UMICAO #### [facility] [address] [place] [address] Public Administration Teacher: Kaiser Banda MD Casts LM.LPF (Urine sed) [#/Area] NOT REPORTED Normal [facility] Comment on above: Performed By: #### U HCG, UA, UMICAO #### [facility] [address] [place] [address] Public Administration Teacher: Kaiser Banda MD Crystals LM Nom (Urine sed) NOT REPORTED Normal NONE [facility] Comment on above: Performed By: #### U HCG, UA, UMICAO #### [facility] [address] [place] [address] Public Administration Teacher: Kaiser Banda MD Epithelial, Renal NOT REPORTED Normal 0 [facility] Comment on above: Performed By: #### U HCG, UA, UMICAO #### [facility] [address] [place] [address] Public Administration Teacher: Kaiser Banda MD Other Observations NOT REPORTED Normal NREQ [facility] Comment on above: Performed By: #### U HCG, UA, UMICAO #### [facility] [address] [place] [address] Public Administration Teacher: Kaiser Banda MD Trichomonas NOT REPORTED Normal NONE [facility] Comment on above: Performed By: #### U HCG, UA, UMICAO #### [facility] [address] [place] [address] Public Administration Teacher: Kaiser Banda MD Yeast LM Ql (Urine sed) NOT REPORTED Normal NONE [facility] Comment on above: Performed By: #### U HCG, UA, UMICAO #### [facility] [address] [place] [address] Public Administration Teacher: Kaiser Banda MD REFLEX HPV HIGH RISKon 11-08 REFLEX HPV HIGH RISK SEE HPV HIGH RISK TEST RESULT Normal [facility] Comment on above: Performed By: #### P L PAP W/IMAGE, 61706, HPV OTHER PL, HPV 16 PL, HPV 18 PL #### [facility] [address] [place] [address] HPV 16on 11-08-2018 HPV 16 Negative Normal NEGATIVE [facility] Comment on above: Performed By: #### P L PAP W/IMAGE, 70394, HPV OTHER PL, HPV 16 PL, HPV 18 PL #### [facility] [address] [place] [address] HPV 18on 11-08-2018 HPV 18 Negative Normal NEGATIVE [facility] Comment on above: Performed By: #### P L PAP W/IMAGE, 31003, HPV OTHER PL, HPV 16 PL, HPV 18 PL #### [facility] [address] [place] [address] OTHER HR HPV GENOTYPESon OTHER HR HPV GENOTYPES Negative Normal NEGATIVE [facility] Comment on above: Result Comment: Test methodology is real-time PCR utilizing hydrolysis probes with the Belem Srini 4800 system. The test individually identifies genotypes 16 and 18 while simultaneously detecting 12 other high risk HPV genotypes (31,33,35,39,45,51,52,56,58,59,66 and 68). The expected result is negative. A negative result does not rule out the presence of an HPV genotype not included in the test panel, a low level of infection or specimen sampling error. The Belem Srini HPV test has been validated for only cervical specimens collected by a clinician using an endocervical brush/spatula and placed in ThinPrep PreservCyt solution. If other specimen sources are tested, results must be interpreted in conjunction with cytology and clinical evaluation of the patient and patient history. Performed By: #### P L PAP W/IMAGE, 14448, HPV OTHER PL, HPV 16 PL, HPV 18 PL #### [facility] [address] [place] [address] PAP, THIN PREP WITH IMAGINGo n 11-08-2018 PAP, THIN PREP WITH IMAGING Normal [facility] Comment on above: Result Comment: Gaby price Cytologic Interpretation Thin Prep Image-Guided Pap Test (Cervical/Endocervical): Satisfactory for evaluation. A transformation zone component is present. SQUAMOUS EPITHELIAL CELL ABNORMALITY Atypical squamous cells of undetermined significance (ASC-US). 11/04/2018 Interpretation performed at [facility], [address] [place] [address], License number: [id number]. Electronically Signed Out By Issac Hernández MD Date of Last Menstrual Period: 10/13/18 Other Clinical Conditions: z12.4 Screenings for malignant neoplasm of cervix Source of Specimen Thin Prep Image-Guided Pap Test (Cervical/Endocervical) Thin Prep Pap (LABOR TRAINER) Fee Code(s): G0145, 33504 The Pap test is a screening test with an inherent, but low, probability of error. The Pap test is primarily effective for the diagnosis and prevention of squamous cell carcinoma. Regular screening is critical for prevention. ThinPrep liquid-based slides, which meet the [employer] Supervisor criteria for automated screening, have been screened by the ThinPrep Imaging System (as of 02/08/07) along with an additional manual rescreening by a outdoor studies director and, if indicated, by a pathologist. [facility] [address] [place] [address] CLIA No. [id number] CAP Accreditation No. [id number] Workforce Manager: Gene Kraft M.D. [facility] Accession Number: [id number] Performed By: #### P L PAP W/IMAGE, 44363, HPV OTHER PL, HPV 16 PL, HPV 18 PL #### [place] [address] [place] [address] CT Nucleic-Acid Probe-Endoce rvical Swabon 10-28-2018 CT Nucleic-Acid Probe-Endocervical Swab Negative Normal NEGATIVE [facility] Comment on above: Performed By: #### G C Amp Endocerv, CT Amp Endocerv #### [place] [address] [place] [address] GC Nucleic-Acid Probe-Endoce rvical Swabon 10-28-2018 GC Nucleic-Acid Probe-Endocervical Swab Negative Normal NEGATIVE [facility] Comment on above: Performed By: #### G C [employer] Endocerv, [facility] #### [facility] [address] [place] [address] HPV 18on 10-28-2018 Age at specimen collection = Normal [facility] Comment on above: Performed By: #### P L PAP W/IMAGE, 46825, HPV OTHER PL, HPV 16 PL, HPV 18 PL #### [facility] [address] [place] [address] Performed By: #### G C [employer]ocerv, [facility] [employer] #### [address] [place] [address] Performed By: #### W ET MOUNT #### [place] [place] [address] Wet Prep-Vaginal Fluidon Yeast, Wet Mount ABSENT Normal ABSENT [facility] Comment on above: Performed By: #### W ET MOUNT #### [address] [place] [address] Trichomonas, Wet [place] ABSENT Normal ABSENT [facility] Comment on above: Performed By: #### W ET MOUNT #### [place] [address] [place] [address] Clue Cells ABSENT Normal ABSENT [facility] Comment on above: Performed By: #### W ET MOUNT #### [address] [address] Vital Signs Date Time Vital Sign Value Performing Clinician Isaura adams 07-27-2023 15:48-0500 Body height 167.6 cm Ronald Harris PA-C Work Phone: [facility] 07-27-2023 15:48-0500 Body mass index (BMI) [Ratio] 26.15 kg/m2 Ronald Harris PA-C Work Phone: [facility] [employer] [facility] 07-27-2023 15:48-0500 Body temperature 97.9 [degF] Ronald Harris PA-C Work Phone: [facility] [employer] [facility] 07-27-2023 15:48-0500 Body weight 73.48 kg Ronald Harris PA-C Work Phone: [facility] 07-27-2023 15:48-0500 Diastolic blood pressure 74 mm[Hg] Ronald Harris PA-C Work Phone: [facility] 07-27-2023 15:48-0500 Heart rate 80 /min Ronald Harris PA-C Work Phone: [facility] [employer] [facility] 07-27-2023 15:48-0500 SaO2% (BldA) [Mass fraction] 97 % Ronald Harris PA-C Work Phone: [facility] [employer] [facility] 07-27-2023 15:48-0500 Systolic blood pressure 110 mm[Hg] Ronald Harris PA-C Work Phone: [facility] 07-06-2023 15:16-0500 Body height 167.6 cm Ronald Harris PA-C Work Phone: [facility] 07-06-2023 15:16-0500 Body mass index (BMI) [Ratio] 26.79 kg/m2 Ronald Harris PA-C Work Phone: [facility] [employer] [facility] 07-06-2023 15:16-0500 Body temperature 98.2 [degF] Ronald Harris PA-C Work Phone: [facility] 07-06-2023 15:16-0500 Body weight 75.3 kg Ronald Harris PA-C Work Phone: [facility] 07-06-2023 15:16-0500 Diastolic blood pressure 72 mm[Hg] Ronald Harris PA-C Work Phone: [facility] 07-06-2023 15:16-0500 Heart rate 83 /min Ronald Harris PA-C Work Phone: [facility] 07-06-2023 15:16-0500 SaO2% (BldA) [Mass fraction] 98 % Ronald Harris PA-C Work Phone: [facility] 07-06-2023 15:16-0500 Systolic blood pressure 118 mm[Hg] Ronald Harris PA-C Work Phone: [facility] 07-05-2019 18:45-0500 BP Diastolic 69 mm[Hg] [employer] Phone: 07-05-2019 18:45-0500 BP Systolic 113 mm[Hg] [employer] Work Phone: 07-05-2019 18:45-0500 Pulse (Heart Rate) 73 /min [employer] Phone: 07-05-2019 18:45-0500 Pulse Oximetry 100 % [employer] Phone: 07-05-2019 18:45-0500 Respiratory Rate 16 /min [employer] Phone: 07-05-2019 16:14-0500 BMI (Body Mass Index) 22.6 kg/m2 [employer] Work Phone: 07-05-2019 16:14-0500 Body Temperature 98.4 [degF] [employer] Work Phone: 07-05-2019 16:14-0500 Body weight 63.5 kg [employer] Phone: 07-05-2019 16:14-0500 Height 167.6 cm [employer] Phone: Encounters Encounter Date Encounter Type Care Provider Facility Start: 03-31-2024 End: 04-01-2024 Refill Ronald Harris PA-C [facility]Sharath Paulino [facility] Start: 12-30-2023 End: 12-30-2023 ambulatory [facility] Start: 10-01-2023 End: 10-01-2023 ambulatory [facility] Start: 09-01-2023 End: 09-01-2023 ambulatory DENNIS VÁZQUEZ [facility] Start: 07-27-2023 End: 07-27-2023 Office outpatient visit 25 minutes Ronald Harris PA-C [facility]Sharath Paulino [facility] Comment on above: Thyroid antibody pos itive (Primary Dx); Tiredness; Lack of sexual interest; Vitamin D deficiency disease; Thyroiditis, autoimmune Start: 07-27-2023 End: 07-27-2023 ambulatory [facility] Start: 07-06-2023 End: 07-06-2023 ambulatory [facility] Start: 07-06-2023 End: 07-06-2023 Office outpatient new 45 minutes Ronald Harris PA-C Work Phone: [facility]/Sharath Paulino MD Comment on above: Hypothyroidism, unsp ecified type (Primary Dx); Dysmenorrhea; Tiredness; Lack of sexual interest; Screening, lipid Start: 07-11-2022 End: 07-11-[address] NONE LISTED REQUEST Facility:[facility] Start: 07-10-2022 Encounter for other preprocedural examination DR HAYDEE RIDLEY . [facility] Start: 07-04-2022 End: 07-05-[address] NONE LISTED REQUEST Facility:[facility] Start: 07-04-2022 End: 07-05-2022 Encounter for other preprocedural examination NONE LISTED REQUEST Facility:[facility] Start: 05-28-2022 End: 05-28-[address] NONE LISTED REQUEST Facility:[facility] Start: 05-21-2022 End: 05-23-2022 Evaluation and management of inpatient DR MARKIE LANTIGUA Facility:[facility] Start: 05-19-2022 End: 05-19-[address] GYPSY MILLER . Facility:[facility] Start: 05-15-[address] HAYDEE RIDLEY . Facili ty:[facility] Start: 05-14-2022 End: 05-14-[address] HAYDEE RIDLEY . Facility:[facility] Start: 05-14-2022 End: 05-14-[address] GYPSY MILLER . Facility:[facility] Start: 05-07-2022 End: 05-07-[address] DOCTOR BOBBY Facility:[facility] Start: 04-27-2022 End: 04-28-[address] GYPSY MILLER . Facility:[facility] Start: 04-24-2022 End: 04-24-[address] GYPSY MILLER . Facility:[facility] Start: 04-23-2022 End: 04-24-[address] GYPSY MILLER . Facility:[facility] Start: 04-23-2022 End: 04-23-[address] GYPSY MILLER . Facility:[facility] Start: 04-16-2022 End: 04-17-[address] HAYDEE RIDLEY . Facility:[facility] Start: 03-17-2022 End: 03-18-[address] HAYDEE RIDLEY . Facility:[facility] Start: 03-09-2022 End: 03-09-[address] HAYDEE RIDLEY . Facility:[facility] Start: 02-26-2022 End: 02-26-[address] HAYDEE RIDLEY . Facility:[facility] Start: 01-29-2022 End: 01-29-[address] NONE LISTED REQUEST Facility:[facility] Start: 01-29-2022 End: 01-30-[address] NONE LISTED REQUEST Facility:[facility] Start: 12-07-2021 End: 12-08-[address] NONE LISTED REQUEST Facility:[facility] Start: 10-31-2021 End: 11-01-[address] NONE LISTED REQUEST Facility:[facility] Start: 10-25-2021 End: 10-26-[address] NONE LISTED REQUEST Facility:[facility] Start: 05-11-2020 End: 05-12-2020 ambulatory MANUEL CORCORAN Facility:[facility] Start: 03-29-2020 End: 03-30-2020 ambulatory MANUEL CORCORAN Facility:[facility] Start: 07-05-2019 End: 07-05-2019 Emergency department patient visit [facility] Start: 07-05-2019 End: 07-05-2019 Emergency department patient visit [facility] ED Comment on above: Ruptured ovarian cys t (Primary Dx); Rectal pain Procedures Date Procedure Procedure Detail Performing Clinician Start: 07-27-2023 Follow-up visit Follow-up RONALD HARRIS Start: 05-21-2022 Delivery of Products of Conception, External Approach DR GYPSY MILLER . Start: 05-21-2022 Drainage of Amniotic Fluid, Therapeutic from Products of Conception, Via Natural or Artificial Opening DR GYPSY MILLER . Start: 07-05-2019 Us transvaginal Start: 07-05-2019 Ct abdomen & pelvis w/contrast material Start: 07-05-2019 Blood count complete auto&auto difrntl wbc Start: 07-05-2019 Comprehensive metabo lic panel Start: 07-05-2019 Urinalysis microscopic only Start: 07-05-2019 Urine test visual color cmprsn meths Start: 07-05-2019 Urnls dip stick/tabl et rgnt auto w/o microscopy Start: 07-05-2019 SALINE LOCK IV Start: 07-05-2019 Us transvaginal Lenny Marcano Work Phone: Start: 07-05-2019 Ct abdomen & pelvis w/contrast material Lenny Marcano Work Phone: Start: 07-05-2019 BASIC METABOLIC PANE L W/ REFLEX TO MG FOR LOW K Lenny Marcano Work Phone: Start: 07-05-2019 Blood count complete auto&auto difrntl wbc Lenny Marcano Work Phone: Start: 07-05-2019 Urinalysis microscopic only Lenny Marcano Work Phone: Start: 07-05-2019 Urine test visual color cmprsn meths Lenny Marcano Work Phone: Start: 07-05-2019 Urnls dip stick/tabl et rgnt auto w/o microscopy Lenny Marcano Work Phone: Plan of Treatment Date Care Activity Detail Author Start: 2043 Shingles Vaccine (1 of 2) Shingles Vaccine (1 of 2) [employer] Work Phone: Start: 12-29-2024 Adult BMI Screening Adult BMI Screen ing [facility] Start: 12-29-2024 Tobacco Screening Tobacco Screening [facility] Start: 07-26-2024 Adult BMI Screening Adult BMI Screen ing [facility] Start: 07-26-2024 Tobacco Screening Tobacco Screening [facility] Start: 07-21-2024 End: 07-21-2024 Patient encounter procedure 07/21/2024 3:30 PM EST Office Visit [facility]/Sharath Paulino MD [address] [place] [phone] Ronald Harris, PA-C [address] [place] [address] [facility]/Sharath Paulino MD Start: 07-06-2024 Adult BMI Screening Adult BMI Screen ing [facility] Start: 07-06-2024 Tobacco Screening Tobacco Screening [facility] Start: 01-24-2024 Influenza vaccination Influenza Vacc ine [facility] Start: 12-17-2023 End: 12-17-2023 Patient encounter procedure 12/17/2023 3:30 PM EDT Office Visit [facility]/Sharath Paulino MD [address] [place] [phone] Ronald Harris PA-C [address] [place] [address] [facility]/Sharath Paulino MD Start: 07-27-2023 End: 07-27-2023 Patient encounter procedure 07/27/2023 3:30 PM EST Office Visit [facility]/Sharath Paulino MD [address] [place] [phone] Ronald Harris, PAMartinC [address] [place] [address] [facility]/Sharath Paulino MD Start: 2023 End: 2023 Patient encounter procedure 2023 3:30 PM EST Appointment [facility] [address] [place] [id number] [facility] Start: 07-06-2023 End: 07-06-2024 US Thyroid gland Ultrasound thyroid Imaging Routine Hypothyroidism, unspecified type Expected: 07/06/2023, Expires: 07/06/2024 [facility] Comment on above: Expected: 07/06/2023 , Expires: 07/06/2024 Start: 01-23-2023 Influenza vaccination Influenza Vacc ine [facility] Start: 01-23-2019 Influenza vaccination Flu vaccine (# 1) [facility]: Start: 2014 Cervical cancer screen Cervical canc er screen [employer] Phone: Start: 2014 Screening for malign ant neoplasm of cervix Pap Smear [facility] Start: 2012 DTaP,Tdap and Td Vaccines (1 - Tdap) DTaP,Tdap and Td Vaccines (1 - Tdap) [facility] Start: 2011 Adult BMI Follow Up Plan Adult BMI Follow Up Plan [facility] Start: 2008 HIV screen HIV screen [employer] Phone: Start: 2005 Depression Screening Depression Scre ening [facility] Start: 2004 DTaP/Tdap/Td vaccine (1 - Tdap) DTaP/Tdap/Td vaccine (1 - Tdap) [facility] Phone: Start: 2004 HPV vaccine (1 - Fem ronak 2-dose series) HPV vaccine (1 - Female 2-dose series) [employer] Phone: Start: 1994 Varicella vaccine (1 of 2 - 2-dose childhood series) Varicella vaccine (1 of 2 - 2-dose childhood series) [employer] Phone: End: 07-06-2024 CBC W Auto Differential panel - Blood CBC auto differential Lab Routine Dysmenorrhea 1 Occurrences starting 07/06/2023 until 07/06/2024 [employer] Phone: Comment on above: 1 Occurrences starti ng 07/06/2023 until 07/06/2024 End: 07-06-2024 Comprehensive metabolic 2000 panel - Serum or Plasma Comprehensive metabolic panel Lab Routine Dysmenorrhea 1 Occurrences starting 07/06/2023 until 07/06/2024 [employer] Comment on above: 1 Occurrences starti ng 07/06/2023 until 07/06/2024 CT ABDOMEN PELVIS W IV CONTRAST Additional Contrast? None CT ABDOMEN PELVIS W IV CONTRAST Additional Contrast? None Imaging STAT 07/05/2019 5:06 PM EST [employer] Phone: End: 07-06-2024 Iron and TIBC Iron and TIBC Lab Routine Dysmenorrhea 1 Occurrences starting 07/06/2023 until 07/06/2024 [employer] Comment on above: 1 Occurrences starti ng 07/06/2023 until 07/06/2024 End: 07-06-2024 Lipid 1996 panel - Serum or Plasma Lipid profile Lab Routine Screening, lipid 1 Occurrences starting 07/06/2023 until 07/06/2024 [employer] Comment on above: 1 Occurrences starti ng 07/06/2023 until 07/06/2024 End: 07-06-2024 Parathyroid Hormone, intact Parathyroid Hormone, intact Lab Routine Hypothyroidism, unspecified type 1 Occurrences starting 07/06/2023 until 07/06/2024 [employer] Comment on above: 1 Occurrences starti ng 07/06/2023 until 07/06/2024 End: 07-06-2024 Thyroid antibodies includes TPO and TGAB Thyroid antibodies includes TPO and TGAB Lab Routine Hypothyroidism, unspecified type 1 Occurrences starting 07/06/2023 until 07/06/2024 [facility] Comment on above: 1 Occurrences starti ng 07/06/2023 until 07/06/2024 End: 07-06-2024 Thyrotropin [Units/volume] in Serum or Plasma TSH Lab Routine Hypothyroidism, unspecified type 1 Occurrences starting 07/06/2023 until 07/06/2024 [facility] Comment on above: 1 Occurrences starti ng 07/06/2023 until 07/06/2024 End: 07-06-2024 Thyroxine (T4) free [Mass/volume] in Serum or Plasma T4, free Lab Routine Hypothyroidism, unspecified type 1 Occurrences starting 07/06/2023 until 07/06/2024 [facility] Comment on above: 1 Occurrences starti ng 07/06/2023 until 07/06/2024 End: 07-06-2024 Vitamin D 25 hydroxy Vitamin D 25 hydroxy Lab Routine Dysmenorrhea 1 Occurrences starting 07/06/2023 until 07/06/2024 [facility] Comment on above: 1 Occurrences starti ng 07/06/2023 until 07/06/2024 Payers Date Payer Category Payer Commercial Managed C are - POS [employer] [id number] 2023 Private Health Insurance [employer] Le JAMES POS II/EPO [id number] 2023-Present [phone] [address] [place] [phone] 2020 Unknown 2019 Unknown [id number] 1993 Unknown [id number] 2.16.840.1.750255.3.579.2. 173 1993 Unknown [id number] 2.16.840.1.014248.3.579.2. 196 1993 Unknown [id number] 2.16.840.1.860853.3.579.2. 196 1993 Unknown [id number] 2.16.840.1.541699.3.579.2. 593 1993 Unknown [id number] 2.16.840.1.720034.3.579.2. 593 1993 Unknown [id number] 2.16.840.1.991893.3.579.2. 593 1993 Unknown [id number] 2.16.840.1.938488.3.579.2. 593 1993 Unknown [id number] 2.16.840.1.841301.3.579.2. 593 1993 Unknown [id number] 2.16.840.1.357358.3.579.2. 593 1993 Unknown [id number] 2.16.840.1.410210.3.579.2. 593 1993 Unknown [id number] 2.16.840.1.900225.3.579.2. 593 1993 Unknown [id number] 2.16.840.1.813051.3.579.2. 593 1993 Unknown [id number] 2.16.840.1.456930.3.579.2. 593 1993 Unknown [id number] 2.16.840.1.007852.3.579.2. 593 1993 Unknown [id number] 2.16.840.1.620066.3.579.2. 593 1993 Unknown [id number] 2.16.840.1.481308.3.579.2. 593 1993 Unknown [id number] 2.16.840.1.810310.3.579.2. 593 1993 Unknown [id number] 2.16.840.1.185080.3.579.2. 593 1993 Unknown [id number] 2.16.840.1.518089.3.579.2. 593 1993 Unknown [id number] 2.16.840.1.698078.3.579.2. 593 1993 Unknown [id number] 2.16.840.1.521924.3.579.2. 593 1993 Unknown [id number] 2.16.840.1.542619.3.579.2. 593 1993 Unknown [id number] 2.16.840.1.838445.3.579.2. 593 1993 Unknown [id number] 2.16.840.1.832760.3.579.2. 593 1993 Unknown [id number] 2.16.840.1.850236.3.579.2. 593 1993 Unknown [id number] 2.16.840.1.989438.3.579.2. 593 1993 Unknown [id number] 2.16.840.1.089247.3.579.2. 1286 1993 Unknown [id number] 2.16.840.1.618656.3.579.2. 1286 1993 Unknown [id number] 2.16.840.1.664142.3.579.2. 1286 1993 Unknown [id number] 2.16.840.1.280520.3.579.2. 1286 1993 Unknown [id number] 2.16.840.1.598141.3.579.2. 1286 1959 Medicaid [id number] 1959 Self-pay 1959 Unknown [id number] 1959 Unknown [id number] Unknown [id number] 2.16.840.1.099130.3.579.2. 593 Social History Date Type Detail Facility Start: 07-05-2019 End: 09-01-2023 Tobacco smoking status NHIS Never smoker [employer] Work Phone: Start: 1993 Sex Assigned At Not on file [facility] [employer] Phone: Start: 07-06-2023 End: 09-01-2023 Tobacco use and exposure Smokeless tobacco non-user [facility] Start: 07-06-2023 End: 12-30-2023 Alcohol intake Current drinker of alcohol (finding) [facility] Start: 07-08-2019 End: 07-05-2020 History of Social function [facility] Start: 07-08-2019 End: 07-05-2020 Alcohol Use Disorder Identification Test - Consumption [AUDIT-C] [facility] Frequency of Alcohol Consumption Never [facility] Start: 07-06-2023 Alcohol Comment socially [facility] Start: 07-08-2019 Sex Female (finding) [facility] NEGATED: Highlighted rowStart: NINF History of tobacco use Passive smoker [facility] History of Present illness Narrative 07-27-2023 Ronald Harris PA-C - 07/27/2023 3:30 PM EST Note Date & Type Note Facility 07-27-2023 History of Present illness Narrative Images from the original note were not included. Subjective Patient ID: Jena Green is a 28 y.o. female. Chief Complaint Chief Complaint Patient presents with Follow-up 3 week f/u, labs comp, US comp, no new concerns HPI HPI 2nd visit with CREATIVE PERFUMER on 07/06/23 s/p severe exhaustion, post- depression, failed 3 depression meds. TSH of 9.[address] Ridley 02/2023 who started synthroid. I feel like I could be sick for days, exhausted, flu-like symptoms. TSH, T4 normal since on synthroid 50mcg. 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 Handling stress well in general. Moods still down. 5 kids. Not looking forward to days. Was so happy and sexually active while but now no interest, sad, down. ? Possible bipolar. doesn't know what mood she will be in. Admits to anger/irritable and then happy/go isabella the next. Past Medical History Past Medical History: Diagnosis Date Depression Post depression Disease of thyroid gland 03/2023 Past Surgical History Past Surgical History: Procedure Laterality Date TUBAL LIGATION 2022 WISDOM TOOTH EXTRACTION Family History Family History Problem Relation Age of Onset Breast cancer Maternal Aunt Breast cancer Maternal Grandmother Stroke Maternal Grandmother Diabetes Maternal Grandmother Hypertension Paternal Grandmother Social History Social History Socioeconomic History Marital status: Spouse name: Not on file Number of children: Not on file Years of education: Not on file Highest education level: Not on file Occupational History Not on file Tobacco Use Smoking status: Never Smokeless tobacco: Never Substance and Sexual Activity Alcohol use: Yes Comment: socially Drug use: Never Sexual activity: Defer Other Topics Concern Not on file Social History Narrative Not on file Social Determinants of Health Financial Resource Strain: Not on file Food Insecurity: Not on file Transportation Needs: Not on file Physical Activity: Not on file Stress: Not on file Social Connections: Not on file Interpersonal Safety: Not on file Housing Instability: Not on file Allergies Allergies Allergen Reactions Amoxicillin Hives, hypertension and Dizziness Current Medications Current Outpatient Medications Medication Sig Dispense Refill levothyroxine (SYNTHROID, LEVOTHROID) 50 MCG tablet Take 1 tablet (50 mcg total) by mouth in the morning. ergocalciferol (VITAMIN D2) 1,250 mcg (50,000 unit) capsule Take 1 capsule (50,000 Units total) by mouth once a week for 12 doses. 12 capsule 0 FLUoxetine (PROzac) 10 mg capsule Take 1 capsule (10 mg total) by mouth in the morning for 30 days. 30 capsule 0 No current facility-administered medications for this visit. Review of Systems Review of Systems Constitutional: Positive for activity change ( numb , tired, no sex drive) and fatigue. Negative for appetite change and fever. HENT: Negative for ear pain and sore throat. Respiratory: Negative for cough and shortness of breath. Cardiovascular: Negative for chest pain and leg swelling. Gastrointestinal: Negative for abdominal pain, diarrhea, nausea and vomiting. Genitourinary: Positive for menstrual problem. Negative for dysuria, flank pain, hematuria, vaginal discharge and vaginal pain. Musculoskeletal: Negative for back pain and neck pain. Skin: Negative for rash and wound. Neurological: Negative for dizziness, weakness, numbness and headaches. Psychiatric/Behavioral: Positive for agitation and behavioral problems. Negative for confusion, dysphoric mood, self-injury, sleep disturbance and suicidal ideas. The patient is nervous/anxious and is hyperactive. Objective Vitals BP 110/74 Pulse 80 Temp 36.6 C (97.9 F) Ht 167.6 cm (5' 6 ) Wt 73.5 kg (162 lb) SpO2 97% BMI 26.15 kg/m Physical Exam Physical Exam Vitals and nursing note reviewed. Constitutional: General: She is not in acute distress. Appearance: She is well-developed. HENT: Head: Normocephalic and atraumatic. Right Ear: Tympanic membrane and ear canal normal. Left Ear: Tympanic membrane and ear canal normal. Nose: Nose normal. Right Sinus: No maxillary sinus tenderness or frontal sinus tenderness. Left Sinus: No maxillary sinus tenderness or frontal sinus tenderness. Mouth/Throat: Mouth: Mucous membranes are moist. Pharynx: Oropharynx is clear. Uvula midline. No posterior oropharyngeal erythema. Eyes: Conjunctiva/sclera: Conjunctivae normal. Pupils: Pupils are equal, round, and reactive to light. Neck: Thyroid: No thyroid mass or thyromegaly. Vascular: No carotid bruit or JVD. Trachea: Trachea normal. Meningeal: Kernig's sign absent. Cardiovascular: Rate and Rhythm: Normal rate and regular rhythm. Pulses: Normal pulses. Radial pulses are 2+ on the right side and 2+ on the left side. Heart sounds: Normal heart sounds, S1 normal and S2 normal. No murmur heard. Pulmonary: Effort: Pulmonary effort is normal. No respiratory distress. Breath sounds: Normal breath sounds. No decreased breath sounds, wheezing, rhonchi or rales. Abdominal: General: Bowel sounds are normal. Palpations: Abdomen is soft. There is no mass. Tenderness: There is no abdominal tenderness. Negative signs include Back's sign and McBurney's sign. Hernia: No hernia is present. Musculoskeletal: General: Normal range of motion. Cervical back: Full passive range of motion without pain and normal range of motion. No rigidity or tenderness. Thoracic back: Normal. No tenderness. Lumbar back: Normal. No tenderness. Right lower leg: No edema. Left lower leg: No edema. Right ankle: No swelling. Left ankle: No swelling. Lymphadenopathy: Cervical: Right cervical: No superficial cervical adenopathy. Left cervical: No superficial cervical adenopathy. Upper Body: Right upper body: No supraclavicular adenopathy. Left upper body: No supraclavicular adenopathy. Skin: General: Skin is warm and dry. Capillary Refill: Capillary refill takes less than 2 seconds. Findings: No ecchymosis or rash. Nails: There is no clubbing. Neurological: General: No focal deficit present. Mental Status: She is alert and oriented to person, place, and time. Mental status is at baseline. Cranial Nerves: No cranial nerve deficit. Sensory: No sensory deficit. Motor: No tremor. Coordination: Coordination normal. Gait: Gait normal. Psychiatric: Mood and Affect: Mood normal. Speech: Speech normal. Behavior: Behavior normal. Behavior is cooperative. Thought Content: Thought content normal. Judgment: Judgment normal. Recent Pertinent Labs and Radiology 0 Result Notes Component Ref Range & Units 07/20/23 1519 Thyroperoxidase AB <10 IU/mL 298 High Thyroglobulin Ab <4.0 IU/mL 20 High Resulting Agency [facility] of 13. Lab Results Component Value Date WBC 9.8 07/20/2023 HGB 12.5 07/20/2023 HCT 36.6 07/20/2023 MCV 87 07/20/2023 PLT 311 07/20/2023 Lab Results Component Value Date GLU 79 07/20/2023 CALCIUM 9.1 07/20/2023 SODIUM 140 07/20/2023 K 3.5 07/20/2023 CO2 27 07/20/2023 BUN 8 07/20/2023 CREATININE 0.59 07/20/2023 Lab Results Component Value Date ALT 33 (H) 07/20/2023 AST 24 07/20/2023 ALKPHOS 75 07/20/2023 Lab Results Component Value Date CHOL 147 (L) 07/20/2023 Lab Results Component Value Date HDL 50 07/20/2023 Lab Results Component Value Date LDLCALC 85 07/20/2023 Lab Results Component Value Date TRIG 62 07/20/2023 No results found for: CHOLHDL Lab Results Component Value Date TSH 1.31 07/20/2023 Assessment/Plan 1. Thyroid antibody positive - [place], [place]; Future 2. Tiredness - [place]; Future 3. Lack of sexual interest - [place]; Future 4. Vitamin D deficiency disease - ergocalciferol (VITAMIN D2) 1,250 mcg (50,000 unit) capsule; Take 1 capsule (50,000 Units total) by mouth once a week for 12 doses. Dispense: 12 capsule; Refill: 0 5. Thyroiditis, autoimmune - [place], [place]; Future There are no discontinued medications. Patient Instructions Refer to restorer lace and textiles for thyroid autoantibodies s/p childbirth Continue Synthroid 50mcg (tsh/t4 corrected) Begin Prozac 10mg daily for depression, possible bipolar tendencies. (abilify) Begin D2 5000 IU weekly Ronald Harris PA-C 07/27/23 164 documented in this encounter [facility] Instructions 07-27-2023 Patient InstructionsAttachments Note Date & Type Note Facility 07-27-2023 Instructions Ronald Harris PA-C - 07/27/2023 3:30 PM EST Refer to restorer lace and textiles for thyroid autoantibodies s/p childbirth Continue Synthroid 50mcg (tsh/t4 corrected) Begin Prozac 10mg daily for depression, possible bipolar tendencies. (abilify) Begin D2 5000 IU weekly The following attachments cannot be sent through Care Everywhere.Fluoxetine, ADULT (Ethiopian)documented in this encounter [facility] History of Present illness Narrative 07-06-2023 Ronald Harris PA-C - 07/06/2023 3:00 PM EST Note Date & Type Note Facility 07-06-2023 History of Present illness Narrative Subjective Patient ID: Jena Green is a 27 y.o. female. Chief Complaint Chief Complaint Patient presents with New Patient Est care HPI HPI CREATIVE PERFUMER here to establish care. LABOR TRAINER, Dr. Ridley referred to have thyroid managed. 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 Found TSH of 9.801 02/2023. Dr. Ridley started her on synthroid 50mcg. 06/26/2023 repeat TSH normal No T4. No prior US of thyroid. Strong FH of thyroid disease. Reports she was having terrible anxiety before starting thyroid medication. CC: Low sex drive, tired. I feel numb. Not many emotions. Specialists: LABOR TRAINER: Peyman Farfan PMH: Hypothyroidism. Post- after all 3 children. PSH: Tubal. LMP: 7 days of heavy bleeding. Needs to wear tampons and pads. Over heavy . Used to be only 2-3 days. Social: x 1 year. 3 live births, 1 miscarriage. 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 5 kids together. Youngest Age 1, then 5, 8, 9, 10 year olds. Past Medical History Past Medical History: Diagnosis Date Depression Poast depression Disease of thyroid gland 03/2023 Past Surgical History Past Surgical History: Procedure Laterality Date TUBAL LIGATION 2022 WISDOM TOOTH EXTRACTION Family History Family History Problem Relation Age of Onset Breast cancer Maternal Aunt Breast cancer Maternal Grandmother Stroke Maternal Grandmother Diabetes Maternal Grandmother Hypertension Paternal Grandmother Social History Social History Socioeconomic History Marital status: Spouse name: Not on file Number of children: Not on file Years of education: Not on file Highest education level: Not on file Occupational History Not on file Tobacco Use Smoking status: Never Smokeless tobacco: Never Substance and Sexual Activity Alcohol use: Yes Comment: socially Drug use: Never Sexual activity: Defer Other Topics Concern Not on file Social History Narrative Not on file Social Determinants of Health Financial Resource Strain: Not on file Food Insecurity: Not on file Transportation Needs: Not on file Physical Activity: Not on file Stress: Not on file Social Connections: Not on file Interpersonal Safety: Not on file Housing Instability: Not on file Allergies Allergies Allergen Reactions Amoxicillin Hives, hypertension and Dizziness Current Medications Current Outpatient Medications Medication Sig Dispense Refill levothyroxine (SYNTHROID, LEVOTHROID) 50 MCG tablet Take 1 tablet (50 mcg total) by mouth in the morning. No current facility-administered medications for this visit. Review of Systems Review of Systems Constitutional: Positive for activity change ( numb , tired, no sex drive) and fatigue. Negative for appetite change and fever. HENT: Negative for ear pain and sore throat. Respiratory: Negative for cough and shortness of breath. Cardiovascular: Negative for chest pain and leg swelling. Gastrointestinal: Negative for abdominal pain, diarrhea, nausea and vomiting. Genitourinary: Positive for menstrual problem. Negative for dysuria, flank pain, hematuria, vaginal discharge and vaginal pain. Musculoskeletal: Negative for back pain and neck pain. Skin: Negative for rash and wound. Neurological: Negative for dizziness, weakness, numbness and headaches. Psychiatric/Behavioral: Negative for confusion, dysphoric mood, self-injury, sleep disturbance and suicidal ideas. The patient is not nervous/anxious. Objective Vitals BP 118/72 Pulse 83 Temp 36.8 C (98.2 F) Ht 167.6 cm (5' 6 ) Wt 75.3 kg (166 lb) SpO2 98% BMI 26.79 kg/m Physical Exam Physical Exam Vitals and nursing note reviewed. Constitutional: General: She is not in acute distress. Appearance: She is well-developed. She is obese. HENT: Head: Normocephalic and atraumatic. Right Ear: Tympanic membrane and ear canal normal. Left Ear: Tympanic membrane and ear canal normal. Nose: Nose normal. Right Sinus: No maxillary sinus tenderness or frontal sinus tenderness. Left Sinus: No maxillary sinus tenderness or frontal sinus tenderness. Mouth/Throat: Mouth: Mucous membranes are moist. Pharynx: Oropharynx is clear. Uvula midline. No posterior oropharyngeal erythema. Eyes: Conjunctiva/sclera: Conjunctivae normal. Pupils: Pupils are equal, round, and reactive to light. Neck: Thyroid: No thyroid mass or thyromegaly. Vascular: No carotid bruit or JVD. Trachea: Trachea normal. Meningeal: Kernig's sign absent. Cardiovascular: Rate and Rhythm: Normal rate and regular rhythm. Pulses: Normal pulses. Radial pulses are 2+ on the right side and 2+ on the left side. Heart sounds: Normal heart sounds, S1 normal and S2 normal. No murmur heard. Pulmonary: Effort: Pulmonary effort is normal. No respiratory distress. Breath sounds: Normal breath sounds. No decreased breath sounds, wheezing, rhonchi or rales. Abdominal: General: Bowel sounds are normal. Palpations: Abdomen is soft. There is no mass. Tenderness: There is no abdominal tenderness. Negative signs include Back's sign and McBurney's sign. Hernia: No hernia is present. Musculoskeletal: General: Normal range of motion. Cervical back: Full passive range of motion without pain and normal range of motion. No rigidity or tenderness. Thoracic back: Normal. No tenderness. Lumbar back: Normal. No tenderness. Right lower leg: No edema. Left lower leg: No edema. Right ankle: No swelling. Left ankle: No swelling. Lymphadenopathy: Cervical: Right cervical: No superficial cervical adenopathy. Left cervical: No superficial cervical adenopathy. Upper Body: Right upper body: No supraclavicular adenopathy. Left upper body: No supraclavicular adenopathy. Skin: General: Skin is warm and dry. Capillary Refill: Capillary refill takes less than 2 seconds. Findings: No ecchymosis or rash. Nails: There is no clubbing. Neurological: General: No focal deficit present. Mental Status: She is alert and oriented to person, place, and time. Mental status is at baseline. Cranial Nerves: No cranial nerve deficit. Sensory: No sensory deficit. Motor: No tremor. Coordination: Coordination normal. Gait: Gait normal. Psychiatric: Mood and Affect: Mood normal. Speech: Speech normal. Behavior: Behavior normal. Behavior is cooperative. Thought Content: Thought content normal. Judgment: Judgment normal. Recent Pertinent Labs and Radiology Assessment/Plan 1. Hypothyroidism, unspecified type - T4, free; Future - TSH; Future - Ultrasound thyroid; Future - Parathyroid Hormone, intact; Future - Thyroid antibodies includes TPO and TGAB; Future 2. Dysmenorrhea - CBC auto differential; Future - Comprehensive metabolic panel; Future - Iron and TIBC; Future - Vitamin D 25 hydroxy; Future 3. Tiredness 4. Lack of sexual interest 5. Screening, lipid - Lipid profile; Future Medications Discontinued During This Encounter Medication Reason ondansetron ODT (ZOFRAN-ODT) 4 mg disintegrating tablet Therapy completed Patient Instructions Increase water to 60 oz/day. No more than 16 oz of caffeine daily. Heavy menses may be causing anemia, iron. Check labs, T4, Thyroid antibodies Continue synthroid 50mcg Thyroid US Begin MVI Ronald Harris PA-C 07/06/23 1555 documented in this encounter [facility] Instructions 07-06-2023 Patient Instructions Note Date & Type Note Facility 07-06-2023 Instructions Ronald Harris PA-C - 07/06/2023 3:00 PM EST Increase water to 60 oz/day. No more than 16 oz of caffeine daily. Heavy menses may be causing anemia, iron. Check labs, T4, Thyroid antibodies Continue synthroid 50mcg Thyroid US Begin MVI Declines ssri/snri for now. documented in this encounter [facility] Clinical Note 07-11-2022 Note Date & Type Note Facility 07-11-2022 Note OPERATIVE NOTE OPERATION DATE: 07/11/2022 PROCEDURE: Robotic assisted laparoscopic salpingectomy. PREOPERATIVE DIAGNOSIS: multiparity, desires permanent sterilization. POSTOPERATIVE DIAGNOSIS: Multiparity, desires permanent sterilization. ANESTHESIA: General. SURGEON: Haydee Ridley D.O. CLAY ROASTER: DAYDAY Harman URINE OUTPUT: Yellow and clear. BLOOD LOSS: 5 mL. FINDINGS: Normal appearing ovaries, uterus and tubes. SPECIMEN: Bilateral tubes. PROCEDURE: The patient was taken back to the OR where she was prepped and draped in the normal sterile fashion after being placed in the dorsal lithotomy position, after being placed under general anesthesia without difficulty. A wet sponge stick was placed into the patient's vagina. Attention was then turned to the patient's abdomen, where a scalpel was used to make a small infraumbilical incision. The S retractors were then used to dissect the underlying layers until the fascia could be seen. The fascia was then grasped with Cristobal clamps and tented up. A knife was then used to make a small incision to the fascia. The muscle was identified, at that time two sutures of #0 Vicryl on a GI needle was then used and placed through the fascia. The peritoneum was then identified and entered bluntly. The 10-4 Gio was then placed into the patient's abdomen. This was confirmed with direct visualization of the bowel, using the laparoscope. The patient's abdomen was then insufflated using approximately 4 liters of CO2 gas. Survey of the patient's abdomen demonstrated normal appearing ovaries, uterus and tubes. A second and third lateral port, which was 7-8 in size and 5 mm in size, was then placed laterally after incision was made in the skin under direct visualization. The patient's tube on the patient's right side was identified. The tube was then tented up using a grasper. The LigaSure was used to transect and coagulate the mesosalpinx from the fimbriated end to the insertion at the uterus; the tube was amputated and removed in its entirety. Excellent hemostasis was noted. This was performed on the contralateral side as well. The lateral ports were then removed under direct visualization with excellent hemostasis. The abdomen was desufflated. All instruments were removed from the patient's abdomen. The fascia was closed using the #0 Vicryl on GI needle. The skin was closed using 4-0 Vicryl subcuticularly. All instruments were removed from the patient's vagina as well. The patient was taken out of the dorsal lithotomy position and placed in the supine position and taken to recovery in stable condition. Sponge, lap and needle counts were correct x2. [facility] Clinical Note 03-09-2022 Note Date & Type Note Facility 03-09-2022 Note PROCEDURE: US PREG C ERVICAL LENGTH, 03/09/2022 6:28 PM EDT CLINICAL INDICATIONS: Pelvic pain in , symptoms for 4 days 4 para 3 Expected gestational age: 26 weeks 4 days Expected GAEL 06/11/2019 COMPARISON: None TECHNIQUE: Limited abdominal sonogram, transabdominal and transvaginal evaluation of cervix. FINDINGS: Single living intrauterine identified, cephalic presentation. body and cardiac activity detected, heart rate 138 bpm. No placenta previa. 4.2 cm transvaginal cervical length, closed. biometry: Not performed. anatomic assessment: Not performed. Maternal adnexa pathology is not demonstrated. IMPRESSION: 1. Single living intrauterine , cephalic presentation 2. No sign of placenta previa 3. 4.2 cm transvaginal cervical length, closed Electronically authenticated by: MANUELA CEVALLOS Date: 2022-03-09 19:02 [facility] Evaluation note Note Date & Type Note Facility Evaluation note Diagnosis Hypothyroidism, unspecified type- Primary Dysmenorrhea Tiredness Other malaise and fatigue Lack of sexual interest Hypoactive sexual desire disorder Screening, lipid documented in this encounter [facility] Evaluation note Note Date & Type Note Facility Evaluation note Diagnosis Thyroid antibody positive- Primary Tiredness Other malaise and fatigue Lack of sexual interest Hypoactive sexual desire disorder Vitamin D deficiency disease Unspecified vitamin D deficiency Thyroiditis, autoimmune Chronic lymphocytic thyroiditis documented in this encounter [facility] Instructions Note Date & Type Note Facility Instructions Not on filedocumented in this en counter [facility] Reason for referral (narrative) Consultation (Urgent) - Pending Review Note Date & Type Note Facility Reason for referral (narrati ve) Specialty Diagnoses / Procedures Referred By Dori hodgson Referred To Contact Endocrinology Diagnoses Thyroid antibody positive Tiredness Lack of sexual interest Thyroiditis, autoimmune oRnald Harris PA-C [address] [place] [address] [facility] [address] [place] [address] Referral ID Status Reason Start Date Expiration Date Visits Requested Visits Authorized [id number] Pending Review Specialty Services Required 07/27/2023 07/26/2024 1 1 [facility] Discharge Instructions * Attachments The following attachments cannot be sent through Care Everywhere. 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 Pt reports she had anal sexual intercourse Thursday night, causing severe abdominal pain, progressively worse now with bloating and rectal bleeding Reason Comments New Patient Est care Reason Comments Follow-up 3 week f/u, labs com p, US comp, no new concerns Reason Onset Date Comments Med Refill 03/31/2024 INFORMATION SOURCE (unrecogn ized section and content) DATE CREATED AUTHOR 07/06/2019 [facility] DATE CREATED AUTHOR AUTHOR'S ORGANIZ ATION 09/15/2019 [facility] DATE CREATED AUTHOR AUTHOR'S ORGANIZ ATION 10/18/2020 [facility] DATE CREATED AUTHOR AUTHOR'S ORGANIZ ATION 10/08/2022 [facility] DATE CREATED AUTHOR AUTHOR'S ORGANIZ ATION 01/02/2024 [facility] Care Teams (unrecognized sec tion and content) Boat Dock 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 Relationship Specialty Start Date End Date Ronald Harris PA-C [address] [place] [address] PCP - General Physician Ornamental Iron Erector 07/06/23 Boat Dock Operator Relationship Specialty Start Date End Date Ronald Harris PA-C [address] [place] [address] PCP - General Physician [employer] Erector 07/06/23 Boat Dock Operator Relationship Specialty Start Date End Date Ronald Harris PA-C [address] [place] [address] PCP - General Physician Ornamental Iron Erector 07/06/23 FOR RECORDS PERTAINING TO PATIENTS WHO ARE OR HAVE BEEN ENROLLED IN A CHEMICAL DEPENDENCY/SUBSTANCEABUSE PROGRAM, SOME INFORMATION MAY BE OMITTED. This clinical summary was aggregated from multiple sources. Caution should be exercised in using it in the provision of clinical care. This summary normalizes information from multiple sources, and as a consequence, information in this document may materially change the coding, format and clinical context of patient data. In addition, data may be omitted in some cases. CLINICAL DECISIONS SHOULD BE BASED ON THE PRIMARY CLINICAL RECORDS. [facility] provides no warranty or guarantee of the accuracy or completeness of information in this document.
--- NOTE | 2024-06-05 12:15 | XR_ITS ---
The [address] [address] Patient Name: JENNIE SHERMAN MRN: [id number] date: 1995 Sex: F Assigned Patient Location: ER Current Patient Location: Accession/Order Number: [id number] Exam Date: 06/05/2024 12:47 Report Date: 06/05/2024 13:45 At the request of: WING DIAZ Procedure: XR chest 1V EXAMINATION: XR chest 1V HISTORY: Cough, recent influenza COMPARISON: No relevant comparison available. FINDINGS: LUNGS: Mild patchy opacity within right lung apex. VASCULATURE: No increased pulmonary vasculature. PLEURA: No pneumothorax, effusion, or pleural thickening. CARDIAC: No cardiomegaly or cardiac silhouette abnormality. MEDIASTINUM: No visible mass or adenopathy. BONES: No fracture or visible bone lesion. OTHER: Negative. XR/XR chest 1V IMPRESSION: 1. Mild right upper lobe infiltrates suggestive of pneumonia. Electronically authenticated by: NAHOMY CABRERA Date: 06/05/2024 13:45
--- NOTE | 2024-06-05 12:15 | ED.URI1 ---
HPI - URI/Sore Throat General Chief Complaint: Upper Respiratory Infection Stated Complaint: FEVER, WEAKNESS, HEADACHE Time Seen by Provider: 06/05/24 12:11 Source: patient History of Present Illness HPI Narrative: 28-year-old female presents for cough and congestion and bodyaches. She contracted influenza about 10 days ago and has been taking several [id number] medications to treat symptoms. She states she came in today because she is just not getting better. No vomiting or diarrhea. Related Data Home Medications ?Medication ?Instructions ?Recorded ?Confirmed fluoxetine 10 mg capsule 10 mg PO DAILY 06/05/24 06/05/24 levothyroxine 50 mcg tablet 50 mcg PO DAILY 06/05/24 06/05/24 Allergies Allergy/AdvReac Type Severity Reaction Status Date / Time amoxicillin AdvReac Severe Hives Verified 06/05/24 12:09 Review of Systems ROS Narrative A ten point review of systems is negative except as noted above. PFSH PFSH Social History Little interest or pleasure in doing things: not at all Feeling down, depressed, or hopeless: not at all Exam Narrative Exam Narrative: Nurses note and vital signs reviewed and patient is not hypoxic. General: The patient appears in no apparent distress. Skin: Warm, dry, no pallor noted. There is no rash noted. Head: Normocephalic, atraumatic Eye: Normal conjunctiva, no drainage Ears, Nose, Mouth, and Throat: oral mucosa is moist. Nares patent. Cardiovascular: Regular Rate and Rhythm, mild tach, Respiratory: Patient is in no distress, no accessory muscle use, lungs are clear to auscultation, no wheezing, rales or rhonchi Back: non-tender GI: Soft and nontender Musculoskeletal: The patient has no evidence of calf tenderness, no pitting edema, symmetrical pulses noted bilaterally Neurological: A&O, normal speech Psychiatric: Cooperative Constitutional Vital Signs, click to edit/add: Last Vital Signs Temp 98.2 F 06/05/24 12:10 Pulse 111 H 06/05/24 12:10 Resp 18 06/05/24 12:10 BP 109/74 06/05/24 12:10 Pulse Ox 98 06/05/24 12:10 O2 Del Method Room Air 06/05/24 12:10 Course Vital Signs Vital signs: Vital Signs Temperature 98.2 F 06/05/24 12:10 Pulse Rate 111 H 06/05/24 12:10 Respiratory Rate 18 06/05/24 12:10 Blood Pressure 109/74 06/05/24 12:10 Pulse Oximetry 98 06/05/24 12:10 Oxygen Delivery Method Room Air 06/05/24 12:10 Temperature 98.2 F 06/05/24 12:10 Pulse Rate 111 H 06/05/24 12:10 Respiratory Rate 18 06/05/24 12:10 Blood Pressure 109/74 06/05/24 12:10 Pulse Oximetry 98 06/05/24 12:10 Oxygen Delivery Method Room Air 06/05/24 12:10 MDM - URI/Sore Throat MDM Narrative Medical decision making narrative: Her workup is essentially negative. COVID test is negative and chest x-ray my interpretation shows no infiltrates. She was given IV fluids. My clinical impression is that she is recovering from influenza. Treatment diagnosis and follow-up were discussed with the patient. Differential Diagnosis Differential diagnosis: Likely upper respiratory infection, viral infection, influenza and other (COVID, pneumonia) Lab Data Attestation: I reviewed the patient's lab results. Labs: Lab Results 06/05/24 06/05/24 Range/Units 12:21 12:22 WBC 11.6 H (4.0-11.0) 10^3/uL RBC 3.77 L (4.20-5.40) 10^6/uL Hgb 11.1 L (12.0-16.0) g/dL Hct 33.1 L (36.0-48.0) % MCV 87.8 (81.0-99.0) fL MCH 29.4 (26.7-34.0) pg MCHC 33.5 (29.9-35.2) g/dL RDW 11.9 (11.0-15.0) % Plt Count 284 (150-450) 10^3/uL MPV 9.3 L (9.5-13.5) fL Neut % (Auto) 83.5 H (43.0-75.0) % Lymph % (Auto) 9.6 L (20.5-60.0) % Twiggs % (Auto) 6.3 (1.7-12.0) % Eos % (Auto) 0.2 L (0.9-7.0) % Baso % (Auto) 0.1 L (0.2-2.0) % Neut # (Auto) 9.7 H (1.4-6.5) 10^3/uL Lymph # (Auto) 1.1 L (1.2-3.8) 10^3/uL Twiggs # (Auto) 0.7 (0.3-0.8) 10^3/uL Eos # (Auto) 0.0 (0.0-0.7) 10^3/uL Baso # (Auto) 0.0 (0.0-0.1) 10^3/uL Abs Immat Gran (auto) 0.04 H (0.00-0.03) 10^3/uL Imm/Tot Granulo (auto) 0.3 (0.0-0.5) % Sodium 137 (136-145) mmol/L Potassium 3.0 L (3.5-5.1) mmol/L Chloride 100 (98-107) mmol/L Carbon Dioxide 27.1 (21.0-32.0) mmol/L Anion Gap 12.9 BUN 6.0 L (7.0-18.0) mg/dL Creatinine 0.68 (0.55-1.02) mg/dL Est GFR ( Amer) >60 (>=60 mL/min/1.73m^2) Est GFR (Non-Af Amer) >60 (>=60 mL/min/1.73m^2) BUN/Creatinine Ratio 8.8 Glucose 104 (74-106) mg/dL Calcium 8.9 (8.5-10.1) mg/dL SARS-CoV-2 Ag (CV2AG) Negative (NEGATIVE) Imaging Data Chest x-ray: My impression: No infiltrate Discharge Plan Discharge Chief Complaint: Upper Respiratory Infection Clinical Impression: Viral illness Patient Disposition: Home, Self-Care Time of Disposition Decision: 12:59 Condition: Good Mode of Transportation: Private Vehicle Prescriptions / Home Meds: No Action fluoxetine 10 mg capsule 10 mg PO DAILY levothyroxine 50 mcg tablet 50 mcg PO DAILY Print Language: Turkish Instructions: Viral Syndrome (ED) Referrals: Physician,Non-Staff, MD [Primary Care Provider] - 1 week
[2024-06-05 12:29] LABS: Basophils Percent Auto 0.1 % (0.2-2.0); Eosinophils Percent Auto 0.2 % (0.9-7.0); Hematocrit 33.1 % (36.0-48.0); Hemoglobin 11.1 g/dL (12.0-16.0); Immature Granulocytes Abs Auto 0.04 10^3/uL (0.00-0.03); Immature Granulocytes Pct Auto 0.3 % (0.0-0.5); Lymphocytes Absolute Auto 1.1 10^3/uL (1.2-3.8); Lymphocytes Percent Auto 9.6 % (20.5-60.0); Mean Corpuscular HGB Conc 33.5 g/dL (29.9-35.2); Mean Corpuscular Hemoglobin 29.4 pg (26.7-34.0); Mean Corpuscular Volume 87.8 fL (81.0-99.0); Mean Platelet Volume 9.3 fL (9.5-13.5); Monocytes Absolute Auto 0.7 10^3/uL (0.3-0.8); Monocytes Percent Auto 6.3 % (1.7-12.0); Neutrophils Absolute Auto 9.7 10^3/uL (1.4-6.5); Neutrophils Percent Auto 83.5 % (43.0-75.0); Platelet Count 284 10^3/uL (150-450); Red Blood Count 3.77 10^6/uL (4.20-5.40); Red Cell Distribution Width 11.9 % (11.0-15.0); White Blood Count 11.6 10^3/uL (4.0-11.0)
[2024-06-05] MEDS: 0.9 % SODIUM CHLORIDE 1,000 ML 1000 ML IV (12:37)
[2024-06-05 12:40] LABS: Anion Gap 12.9; BUN Creatinine Ratio 8.8; Calcium 8.9 mg/dL (8.5-10.1); Carbon Dioxide 27.1 mmol/L (21.0-32.0); Chloride 100 mmol/L (98-107); Estimated GFR (African America >60 (>=60 mL/min/1.73m^2); Estimated GFR (Non-African Ame >60 (>=60 mL/min/1.73m^2); Glucose 104 mg/dL (74-106); Sodium 137 mmol/L (136-145)
[2024-06-05 12:40] LABS: Internal Control Within Normal Limits; SARS-CoV-2 Ag NEGATIVE (NEGATIVE)
== END 2024-06-05 13:37 | disposition home or self-care (01) ==
PROVIDERS: Emergency Provider Emergency Medicine
DX: B34.9 Viral infection, unspecified (principal)
CPT/HCPCS: 36415; 71045; 80048; 85025; 87811; 99285